=== PATIENT | male | born 1955 | race Caucasian/White ===

== ENCOUNTER 2020-11-28 17:38 | Inpatient (IN) ==
[2020-11-28] MEDS ORDERED: polyethylene glycoL 3350 17 GM POWD.PACK PO PRN (18:23)
[2020-11-28] MEDS ORDERED: Ipratropium/Albuterol Neb 3 ML IH PRN (22:17)
[2020-11-28] MEDS: *HR* OxyCODONE/APAP 10/325 TABLET PO PRN (22:37)
[2020-11-28] MEDS: Budesonide/Formoterol 80/4.5 1 PUFF INH IH SCH (23:18)
[2020-11-29 07:47] LABS: Basophils % 0.2 %; Eosinophils # 0.1 K/mcL (0.0-0.6); Eosinophils % 0.4 %; Hematocrit 30.2 % (37.5-50.1); Hemoglobin 10.4 g/dL (12.9-16.9); Immature Granulocytes % 1.4 % (0-4); Lymphocytes # 1.6 K/mcL (0.6-4.6); Lymphocytes % 7.8 %; Mean Corpuscular HGB Conc 34.4 g/dL (31.6-35.5); Mean Corpuscular Hemoglobin 33.2 pg (28.0-33.3); Mean Corpuscular Volume 96.5 fL (83.0-100.0); Mean Platelet Volume 9.7 fL (9.4-12.4); Monocytes # 1.7 K/mcL (0.0-1.3); Monocytes % 8.3 %; Neutrophils # 16.8 K/mcL (1.6-8.9); Platelet Count 219 K/mcL (140-400); Red Blood Count 3.13 M/mcL (4.19-5.50); Red Cell Distribution Width 12.2 % (11.5-14.5); Segmented Neutrophils % 81.9 %; White Blood Count 20.5 K/mcL (4.3-11.1)
[2020-11-29] MEDS: Metoprolol XL (24 HR) Succ 50 MG TAB.ER.24H PO SCH (08:09)
[2020-11-29] MEDS: Aspirin Enteric Coated 81 MG Tablet PO SCH (08:09)
[2020-11-29] MEDS: Valsartan 160 MG TABLET PO SCH (08:09)
[2020-11-29] MEDS: hydroCHLOROthiazide 25 MG TABLET PO SCH (08:10)
[2020-11-29] MEDS: Nicotine 14 MG PATCH.TD24 TD SCH (08:11)
[2020-11-29 08:15] LABS: BUN/Creatinine Ratio 20 (6-26); Blood Urea Nitrogen 20 mg/dL (8-23); Calcium 8.7 mg/dL (8.6-10.3); Carbon Dioxide 27 mEq/L (23-29); Chloride 95 mEq/L (98-107); Glucose 121 mg/dL (70-105); Osmolality,Calculated 280 (280-300); Potassium 3.5 mEq/L (3.5-5.1); Sodium 133 mEq/L (136-145); eGFR For African Americans > 60 (> 60); eGFR For Non-African Americans > 60 (> 60)
[2020-11-29] MEDS: *HR* OxyCODONE/APAP 10/325 TABLET PO PRN ×3 (08:27→21:20)
[2020-11-29] MEDS: Budesonide/Formoterol 80/4.5 1 PUFF INH IH SCH ×2 (10:16→20:28)
[2020-11-29] MEDS: Tiotropium 10 INH DOSE IH SCH (10:17)
[2020-11-29] MEDS ORDERED: Furosemide 20 MG TABLET PO ONE (15:20)
[2020-11-30 07:52] LABS: Basophils # 0.1 K/mcL (0.0-0.2); Basophils % 0.6 %; Eosinophils # 0.3 K/mcL (0.0-0.6); Eosinophils % 2.1 %; Hematocrit 28.1 % (37.5-50.1); Hemoglobin 9.3 g/dL (12.9-16.9); Immature Granulocytes % 1.3 % (0-4); Lymphocytes % 12.4 %; Mean Corpuscular HGB Conc 33.1 g/dL (31.6-35.5); Mean Corpuscular Volume 99.6 fL (83.0-100.0); Mean Platelet Volume 10.4 fL (9.4-12.4); Monocytes # 1.5 K/mcL (0.0-1.3); Neutrophils # 12.2 K/mcL (1.6-8.9); Platelet Count 249 K/mcL (140-400); Red Blood Count 2.82 M/mcL (4.19-5.50); Red Cell Distribution Width 12.4 % (11.5-14.5); Segmented Neutrophils % 74.6 %; White Blood Count 16.3 K/mcL (4.3-11.1)
[2020-11-30 08:01] LABS: Albumin 2.7 g/dL (3.5-5.7); Albumin/Globulin Ratio 0.7 (1.1-2.2); Bilirubin,Total 0.9 mg/dL (0.3-1.0); Calcium 8.8 mg/dL (8.6-10.3); Globulin 3.8 g/dL (2.4-3.5); Potassium 3.3 mEq/L (3.5-5.1); Total Protein 6.5 g/dL (6.4-8.9)
[2020-11-30] MEDS: Budesonide/Formoterol 80/4.5 1 PUFF INH IH SCH ×2 (09:51→20:44)
[2020-11-30] MEDS: Tiotropium 10 INH DOSE IH SCH (09:53)
[2020-11-30] MEDS: Valsartan 160 MG TABLET PO SCH (10:05)
[2020-11-30] MEDS: hydroCHLOROthiazide 25 MG TABLET PO SCH (10:05)
[2020-11-30] MEDS: Metoprolol XL (24 HR) Succ 50 MG TAB.ER.24H PO SCH (10:06)
[2020-11-30] MEDS: Aspirin Enteric Coated 81 MG Tablet PO SCH (10:16)
[2020-11-30] MEDS: Nicotine 14 MG PATCH.TD24 TD SCH (10:17)
[2020-11-30] MEDS: *HR* OxyCODONE/APAP 10/325 TABLET PO PRN ×2 (10:39→17:14)
[2020-11-30] MEDS ORDERED: predniSONE 20 MG TABLET PO ONE (10:51)
[2020-11-30] MEDS ORDERED: Colchicine 0.6 MG TABLET PO ONE (12:15)
[2020-11-30] MEDS: Colchicine 0.6 MG TABLET PO SCH (21:10)
[2020-11-30] MEDS: Acetaminophen 325 MG TABLET PO PRN (21:10)
[2020-12-01 07:56] LABS: Basophils # 0.1 K/mcL (0.0-0.2); Basophils % 0.3 %; Eosinophils % 0.1 %; Hematocrit 28.6 % (37.5-50.1); Hemoglobin 9.4 g/dL (12.9-16.9); Immature Granulocytes % 1.4 % (0-4); Lymphocytes # 1.8 K/mcL (0.6-4.6); Lymphocytes % 10.8 %; Mean Corpuscular HGB Conc 32.9 g/dL (31.6-35.5); Mean Corpuscular Hemoglobin 32.3 pg (28.0-33.3); Mean Corpuscular Volume 98.3 fL (83.0-100.0); Mean Platelet Volume 10.5 fL (9.4-12.4); Monocytes # 1.2 K/mcL (0.0-1.3); Monocytes % 7.3 %; Neutrophils # 13.5 K/mcL (1.6-8.9); Platelet Count 321 K/mcL (140-400); Red Blood Count 2.91 M/mcL (4.19-5.50); Segmented Neutrophils % 80.1 %; White Blood Count 16.8 K/mcL (4.3-11.1)
[2020-12-01 08:15] LABS: Alanine Aminotransferase 42 Units/L (7-52); Albumin 2.8 g/dL (3.5-5.7); Albumin/Globulin Ratio 0.7 (1.1-2.2); Alkaline Phosphatase 111 Units/L (34-104); Aspartate Amino Transferase 53 Units/L (13-39); BUN/Creatinine Ratio 34 (6-26); Bilirubin,Total 0.6 mg/dL (0.3-1.0); Blood Urea Nitrogen 47 mg/dL (8-23); Calcium 8.8 mg/dL (8.6-10.3); Carbon Dioxide 28 mEq/L (23-29); Chloride 97 mEq/L (98-107); Globulin 3.9 g/dL (2.4-3.5); Glucose 111 mg/dL (70-105); Magnesium 2.2 mg/dL (1.6-2.6); Osmolality,Calculated 293 (280-300); Potassium 3.6 mEq/L (3.5-5.1); Sodium 135 mEq/L (136-145); Total Protein 6.7 g/dL (6.4-8.9); eGFR For African Americans > 60 (> 60); eGFR For Non-African Americans 52 (> 60)
[2020-12-01] MEDS: Nicotine 14 MG PATCH.TD24 TD SCH (10:10)
[2020-12-01] MEDS: Colchicine 0.6 MG TABLET PO SCH ×2 (10:10→20:10)
[2020-12-01] MEDS: *HR* OxyCODONE/APAP 10/325 TABLET PO PRN ×3 (10:10→22:32)
[2020-12-01] MEDS: Metoprolol XL (24 HR) Succ 50 MG TAB.ER.24H PO SCH (10:11)
[2020-12-01] MEDS: Aspirin Enteric Coated 81 MG Tablet PO SCH (10:11)
[2020-12-01] MEDS: predniSONE 20 MG TABLET PO SCH (10:11)
[2020-12-01] MEDS: hydroCHLOROthiazide 25 MG TABLET PO SCH (10:11)
[2020-12-01] MEDS: Valsartan 160 MG TABLET PO SCH (10:11)
[2020-12-01] MEDS: Tiotropium 10 INH DOSE IH SCH (10:19)
[2020-12-01] MEDS: Budesonide/Formoterol 80/4.5 1 PUFF INH IH SCH ×2 (10:20→22:22)
[2020-12-01] MEDS ORDERED: hydrALAZINE 25 MG TABLET PO PRN (11:03)
[2020-12-02] MEDS: Nicotine 14 MG PATCH.TD24 TD SCH (08:26)
[2020-12-02] MEDS: predniSONE 20 MG TABLET PO SCH (08:26)
[2020-12-02] MEDS: Metoprolol XL (24 HR) Succ 50 MG TAB.ER.24H PO SCH (08:27)
[2020-12-02] MEDS: Aspirin Enteric Coated 81 MG Tablet PO SCH (08:27)
[2020-12-02] MEDS: Colchicine 0.6 MG TABLET PO SCH ×2 (08:28→20:55)
[2020-12-02] MEDS: *HR* OxyCODONE/APAP 10/325 TABLET PO PRN ×3 (09:25→21:54)
[2020-12-02] MEDS: Budesonide/Formoterol 80/4.5 1 PUFF INH IH SCH ×2 (09:58→22:37)
[2020-12-02] MEDS: Tiotropium 10 INH DOSE IH SCH (09:59)
[2020-12-02] MEDS: Acetaminophen 325 MG TABLET PO PRN (13:50)
[2020-12-03] MEDS: *HR* OxyCODONE/APAP 10/325 TABLET PO PRN ×3 (05:09→18:44)
[2020-12-03 06:44] LABS: Basophils # 0.1 K/mcL (0.0-0.2); Basophils % 0.6 %; Eosinophils # 0.1 K/mcL (0.0-0.6); Eosinophils % 0.6 %; Hematocrit 29.6 % (37.5-50.1); Hemoglobin 9.6 g/dL (12.9-16.9); Lymphocytes # 3.2 K/mcL (0.6-4.6); Lymphocytes % 24.2 %; Mean Corpuscular HGB Conc 32.4 g/dL (31.6-35.5); Mean Corpuscular Hemoglobin 32.3 pg (28.0-33.3); Mean Corpuscular Volume 99.7 fL (83.0-100.0); Monocytes # 1.1 K/mcL (0.0-1.3); Neutrophils # 8.8 K/mcL (1.6-8.9); Platelet Count 393 K/mcL (140-400); Red Blood Count 2.97 M/mcL (4.19-5.50); Segmented Neutrophils % 65.6 %; White Blood Count 13.4 K/mcL (4.3-11.1)
[2020-12-03 07:16] LABS: BUN/Creatinine Ratio 33 (6-26); Blood Urea Nitrogen 47 mg/dL (8-23); Calcium 8.5 mg/dL (8.6-10.3); Carbon Dioxide 28 mEq/L (23-29); Chloride 99 mEq/L (98-107); Glucose 117 mg/dL (70-105); Osmolality,Calculated 297 (280-300); Potassium 3.2 mEq/L (3.5-5.1); Sodium 137 mEq/L (136-145); eGFR For African Americans > 60 (> 60); eGFR For Non-African Americans 50 (> 60)
[2020-12-03] MEDS: Colchicine 0.6 MG TABLET PO SCH ×2 (08:43→20:40)
[2020-12-03] MEDS: Metoprolol XL (24 HR) Succ 50 MG TAB.ER.24H PO SCH (08:43)
[2020-12-03] MEDS: Aspirin Enteric Coated 81 MG Tablet PO SCH (08:43)
[2020-12-03] MEDS: predniSONE 20 MG TABLET PO SCH (08:43)
[2020-12-03] MEDS: Nicotine 14 MG PATCH.TD24 TD SCH (08:44)
[2020-12-03] MEDS: Budesonide/Formoterol 80/4.5 1 PUFF INH IH SCH ×2 (10:23→20:25)
[2020-12-03] MEDS: Tiotropium 10 INH DOSE IH SCH (10:23)
[2020-12-04] MEDS: *HR* OxyCODONE/APAP 10/325 TABLET PO PRN ×4 (01:02→21:28)
[2020-12-04] MEDS: Metoprolol XL (24 HR) Succ 50 MG TAB.ER.24H PO SCH (08:50)
[2020-12-04] MEDS: Valsartan 160 MG TABLET PO SCH (08:50)
[2020-12-04] MEDS: Colchicine 0.6 MG TABLET PO SCH ×2 (08:50→19:31)
[2020-12-04] MEDS: Aspirin Enteric Coated 81 MG Tablet PO SCH (08:50)
[2020-12-04] MEDS: predniSONE 20 MG TABLET PO SCH (08:51)
[2020-12-04] MEDS: hydroCHLOROthiazide 25 MG TABLET PO SCH (08:51)
[2020-12-04] MEDS: Nicotine 14 MG PATCH.TD24 TD SCH (08:51)
[2020-12-04] MEDS: Tiotropium 10 INH DOSE IH SCH (10:15)
[2020-12-04] MEDS: Budesonide/Formoterol 80/4.5 1 PUFF INH IH SCH ×2 (10:16→20:31)
[2020-12-04 20:23] VITALS: TEMP 97.8
[2020-12-05] MEDS: *HR* OxyCODONE/APAP 10/325 TABLET PO PRN ×2 (06:21→15:31)
[2020-12-05 06:45] VITALS: BP 156/89; PULSE 54
[2020-12-05 08:47] LABS: Basophils # 0.1 K/mcL (0.0-0.2); Basophils % 0.6 %; Eosinophils # 0.2 K/mcL (0.0-0.6); Eosinophils % 1.4 %; Hematocrit 31.8 % (37.5-50.1); Hemoglobin 10.2 g/dL (12.9-16.9); Immature Granulocytes % 1.5 % (0-4); Lymphocytes # 3.6 K/mcL (0.6-4.6); Lymphocytes % 28.3 %; Mean Corpuscular HGB Conc 32.1 g/dL (31.6-35.5); Mean Corpuscular Hemoglobin 31.8 pg (28.0-33.3); Mean Corpuscular Volume 99.1 fL (83.0-100.0); Mean Platelet Volume 9.8 fL (9.4-12.4); Monocytes # 0.9 K/mcL (0.0-1.3); Monocytes % 7.4 %; Platelet Count 381 K/mcL (140-400); Red Blood Count 3.21 M/mcL (4.19-5.50); Red Cell Distribution Width 12.2 % (11.5-14.5); Segmented Neutrophils % 60.8 %; White Blood Count 12.6 K/mcL (4.3-11.1)
[2020-12-05 08:49] LABS: Neutrophils # 7.7 K/mcL (1.6-8.9)
[2020-12-05 09:13] LABS: BUN/Creatinine Ratio 33 (6-26); Blood Urea Nitrogen 39 mg/dL (8-23); Calcium 8.8 mg/dL (8.6-10.3); Carbon Dioxide 26 mEq/L (23-29); Chloride 101 mEq/L (98-107); Glucose 78 mg/dL (70-105); Osmolality,Calculated 292 (280-300); Potassium 3.6 mEq/L (3.5-5.1); Sodium 137 mEq/L (136-145); eGFR For African Americans > 60 (> 60); eGFR For Non-African Americans > 60 (> 60)
[2020-12-05] MEDS: Aspirin Enteric Coated 81 MG Tablet PO SCH (09:40)
[2020-12-05] MEDS: Colchicine 0.6 MG TABLET PO SCH (09:40)
[2020-12-05] MEDS: predniSONE 20 MG TABLET PO SCH (09:41)
[2020-12-05] MEDS: Valsartan 160 MG TABLET PO SCH (09:41)
[2020-12-05] MEDS: Metoprolol XL (24 HR) Succ 50 MG TAB.ER.24H PO SCH (09:41)
[2020-12-05] MEDS: hydroCHLOROthiazide 25 MG TABLET PO SCH (09:42)
[2020-12-05] MEDS: Nicotine 14 MG PATCH.TD24 TD SCH (09:42)
[2020-12-05] MEDS: Budesonide/Formoterol 80/4.5 1 PUFF INH IH SCH (10:44)
[2020-12-05] MEDS: Tiotropium 10 INH DOSE IH SCH (10:45)
[2020-12-05 12:01] VITALS: RESP 16; O2SAT 97
== END 2020-12-05 18:44 | disposition home health service (06) | DRG 945 ==
LOC: INPPIK 22:09
PROVIDERS: ADMIT Internal Medicine; ATTEND Internal Medicine

== ENCOUNTER 2021-01-02 17:07 | Inpatient (IN) ==
[2021-01-02] MEDS ORDERED: Nicotine 2 MG GUM BC PRN (20:50)
[2021-01-02] MEDS ORDERED: Ipratropium/Albuterol Neb 3 ML IH PRN (20:50)
[2021-01-02] MEDS: *HR* OxyCODONE/APAP 10/325 TABLET PO PRN (21:36)
[2021-01-03] MEDS: *HR* OxyCODONE/APAP 10/325 TABLET PO PRN ×3 (04:55→17:21)
[2021-01-03 08:06] LABS: Basophils # 0.1 K/mcL (0.0-0.2); Basophils % 0.5 %; Eosinophils # 0.2 K/mcL (0.0-0.6); Eosinophils % 1.4 %; Hematocrit 25.1 % (37.5-50.1); Hemoglobin 8.2 g/dL (12.9-16.9); Immature Granulocytes % 1.9 % (0-4); Lymphocytes # 1.5 K/mcL (0.6-4.6); Lymphocytes % 13.6 %; Mean Corpuscular HGB Conc 32.7 g/dL (31.6-35.5); Mean Corpuscular Hemoglobin 30.8 pg (28.0-33.3); Mean Corpuscular Volume 94.4 fL (83.0-100.0); Mean Platelet Volume 8.9 fL (9.4-12.4); Monocytes # 1.1 K/mcL (0.0-1.3); Monocytes % 9.6 %; Platelet Count 226 K/mcL (140-400); Red Blood Count 2.66 M/mcL (4.19-5.50); Red Cell Distribution Width 13.9 % (11.5-14.5)
[2021-01-03 09:29] LABS: BUN/Creatinine Ratio 21 (6-26); Blood Urea Nitrogen 23 mg/dL (8-23); Calcium 8.6 mg/dL (8.6-10.3); Carbon Dioxide 27 mEq/L (23-29); Chloride 90 mEq/L (98-107); Glucose 111 mg/dL (70-105); Osmolality,Calculated 266 (280-300); Potassium 3.7 mEq/L (3.5-5.1); Sodium 126 mEq/L (136-145); eGFR For African Americans > 60 (> 60); eGFR For Non-African Americans > 60 (> 60)
[2021-01-03] MEDS: Budesonide/Formoterol 80/4.5 1 PUFF INH IH SCH ×2 (09:49→21:18)
[2021-01-03] MEDS: Tiotropium 10 INH DOSE IH SCH (09:49)
[2021-01-03] MEDS: Valsartan 160 MG TABLET PO SCH (11:00)
[2021-01-03] MEDS: Aspirin Enteric Coated 81 MG Tablet PO SCH (11:00)
[2021-01-03] MEDS: Nicotine 14 MG PATCH.TD24 TD SCH (11:00)
[2021-01-03] MEDS: Metoprolol XL (24 HR) Succ 50 MG TAB.ER.24H PO SCH (11:01)
[2021-01-03] MEDS: hydroCHLOROthiazide 25 MG TABLET PO SCH (11:01)
[2021-01-03] MEDS: Furosemide 40 MG TABLET PO SCH (11:01)
[2021-01-04] MEDS: *HR* OxyCODONE/APAP 10/325 TABLET PO PRN ×3 (03:46→19:48)
[2021-01-04] MEDS: *HR* Enoxaparin 40 MG/0.4 ML SYRINGE SQ SCH (05:37)
[2021-01-04] MEDS: Budesonide/Formoterol 80/4.5 1 PUFF INH IH SCH ×2 (09:00→21:47)
[2021-01-04] MEDS: Tiotropium 10 INH DOSE IH SCH (09:00)
[2021-01-04] MEDS: Aspirin Enteric Coated 81 MG Tablet PO SCH (10:41)
[2021-01-04] MEDS: Furosemide 40 MG TABLET PO SCH (10:41)
[2021-01-04] MEDS: Valsartan 160 MG TABLET PO SCH (10:41)
[2021-01-04] MEDS: hydroCHLOROthiazide 25 MG TABLET PO SCH (10:41)
[2021-01-04] MEDS: Metoprolol XL (24 HR) Succ 50 MG TAB.ER.24H PO SCH (10:42)
[2021-01-04] MEDS: Nicotine 14 MG PATCH.TD24 TD SCH (10:42)
[2021-01-05] MEDS: *HR* OxyCODONE/APAP 10/325 TABLET PO PRN ×3 (04:50→20:54)
[2021-01-05] MEDS: *HR* Enoxaparin 40 MG/0.4 ML SYRINGE SQ SCH (04:50)
[2021-01-05] MEDS: Aspirin Enteric Coated 81 MG Tablet PO SCH (07:40)
[2021-01-05] MEDS: Furosemide 40 MG TABLET PO SCH (07:40)
[2021-01-05] MEDS: Metoprolol XL (24 HR) Succ 50 MG TAB.ER.24H PO SCH (07:40)
[2021-01-05] MEDS: hydroCHLOROthiazide 25 MG TABLET PO SCH (07:41)
[2021-01-05] MEDS: Valsartan 160 MG TABLET PO SCH (07:41)
[2021-01-05] MEDS: Nicotine 14 MG PATCH.TD24 TD SCH (07:41)
[2021-01-05 08:33] LABS: Basophils # 0.1 K/mcL (0.0-0.2); Basophils % 0.6 %; Eosinophils # 0.3 K/mcL (0.0-0.6); Eosinophils % 2.7 %; Hematocrit 22.8 % (37.5-50.1); Hemoglobin 7.6 g/dL (12.9-16.9); Immature Granulocytes % 1.4 % (0-4); Lymphocytes # 1.8 K/mcL (0.6-4.6); Lymphocytes % 17.5 %; Mean Corpuscular HGB Conc 33.3 g/dL (31.6-35.5); Mean Corpuscular Hemoglobin 30.8 pg (28.0-33.3); Mean Corpuscular Volume 92.3 fL (83.0-100.0); Mean Platelet Volume 9.1 fL (9.4-12.4); Monocytes % 10.2 %; Neutrophils # 6.9 K/mcL (1.6-8.9); Platelet Count 242 K/mcL (140-400); Red Blood Count 2.47 M/mcL (4.19-5.50); Segmented Neutrophils % 67.6 %; White Blood Count 10.1 K/mcL (4.3-11.1)
[2021-01-05 08:45] LABS: BUN/Creatinine Ratio 24 (6-26); Blood Urea Nitrogen 20 mg/dL (8-23); Calcium 8.6 mg/dL (8.6-10.3); Carbon Dioxide 29 mEq/L (23-29); Chloride 86 mEq/L (98-107); Glucose 105 mg/dL (70-105); Osmolality,Calculated 259 (280-300); Potassium 3.5 mEq/L (3.5-5.1); Sodium 123 mEq/L (136-145); eGFR For African Americans > 60 (> 60); eGFR For Non-African Americans > 60 (> 60)
[2021-01-05] MEDS: Budesonide/Formoterol 80/4.5 1 PUFF INH IH SCH ×2 (09:00→22:28)
[2021-01-05] MEDS: Tiotropium 10 INH DOSE IH SCH (09:00)
[2021-01-05] MEDS: Ondansetron ODT 4 MG TAB.RAPDIS SL PRN (12:24)
[2021-01-06] MEDS: *HR* Enoxaparin 40 MG/0.4 ML SYRINGE SQ SCH (05:18)
[2021-01-06] MEDS: *HR* OxyCODONE/APAP 10/325 TABLET PO PRN ×3 (05:19→18:05)
[2021-01-06] MEDS: Metoprolol XL (24 HR) Succ 50 MG TAB.ER.24H PO SCH (09:35)
[2021-01-06] MEDS: Aspirin Enteric Coated 81 MG Tablet PO SCH (09:35)
[2021-01-06] MEDS: hydroCHLOROthiazide 25 MG TABLET PO SCH (09:35)
[2021-01-06] MEDS: Nicotine 14 MG PATCH.TD24 TD SCH (09:36)
[2021-01-06] MEDS: Valsartan 160 MG TABLET PO SCH (09:36)
[2021-01-06] MEDS: Furosemide 40 MG TABLET PO SCH (09:36)
[2021-01-06] MEDS: Budesonide/Formoterol 80/4.5 1 PUFF INH IH SCH ×2 (09:54→22:33)
[2021-01-06] MEDS: Tiotropium 10 INH DOSE IH SCH (09:54)
[2021-01-06] MEDS: Ondansetron ODT 4 MG TAB.RAPDIS SL PRN (14:52)
[2021-01-06] MEDS: Sennosides/Docusate Sodium TABLET PO SCH (21:36)
[2021-01-07] MEDS: *HR* OxyCODONE/APAP 10/325 TABLET PO PRN ×3 (00:33→17:10)
[2021-01-07] MEDS: *HR* Enoxaparin 40 MG/0.4 ML SYRINGE SQ SCH (06:15)
[2021-01-07 06:36] VITALS: BP 100/65; PULSE 57; RESP 18; TEMP 98.1; O2SAT 93
[2021-01-07] MEDS: Valsartan 160 MG TABLET PO SCH (09:00)
[2021-01-07] MEDS: Sennosides/Docusate Sodium TABLET PO SCH (09:00)
[2021-01-07] MEDS: hydroCHLOROthiazide 25 MG TABLET PO SCH (09:00)
[2021-01-07] MEDS: Nicotine 14 MG PATCH.TD24 TD SCH (09:01)
[2021-01-07] MEDS: Furosemide 40 MG TABLET PO SCH (09:01)
[2021-01-07] MEDS: Aspirin Enteric Coated 81 MG Tablet PO SCH (09:01)
[2021-01-07] MEDS: Metoprolol XL (24 HR) Succ 50 MG TAB.ER.24H PO SCH (09:01)
[2021-01-07] MEDS: Tiotropium 10 INH DOSE IH SCH (10:44)
[2021-01-07] MEDS: Budesonide/Formoterol 80/4.5 1 PUFF INH IH SCH (10:44)
[2021-01-07] MEDS: Ondansetron ODT 4 MG TAB.RAPDIS SL PRN (17:10)
== END 2021-01-07 19:35 | disposition short-term general hospital (02) | DRG 593 ==
LOC: INPPIK 21:06
PROVIDERS: ADMIT Internal Medicine; ATTEND Internal Medicine

== ENCOUNTER 2021-01-14 16:25 | Inpatient (IN) ==
[2021-01-14] MEDS ORDERED: Nicotine 2 MG GUM BC PRN (17:26)
[2021-01-14] MEDS ORDERED: Ipratropium/Albuterol Neb 3 ML IH PRN (17:26)
[2021-01-14] MEDS: Budesonide/Formoterol 80/4.5 1 PUFF INH IH SCH (21:58)
[2021-01-14] MEDS: *HR* OxyCODONE/APAP 10/325 TABLET PO PRN (22:00)
[2021-01-15] MEDS: *HR* OxyCODONE/APAP 10/325 TABLET PO PRN ×3 (04:06→23:46)
[2021-01-15 06:21] LABS: Basophils # 0.1 K/mcL (0.0-0.2); Eosinophils # 0.3 K/mcL (0.0-0.6); Hematocrit 23.6 % (37.5-50.1); Hemoglobin 7.5 g/dL (12.9-16.9); Immature Granulocytes % 3.7 % (0-4); Lymphocytes % 23.4 %; Mean Corpuscular HGB Conc 31.8 g/dL (31.6-35.5); Mean Corpuscular Hemoglobin 30.7 pg (28.0-33.3); Mean Corpuscular Volume 96.7 fL (83.0-100.0); Monocytes # 0.9 K/mcL (0.0-1.3); Monocytes % 10.8 %; Platelet Count 265 K/mcL (140-400); Red Blood Count 2.44 M/mcL (4.19-5.50); Red Cell Distribution Width 14.9 % (11.5-14.5); Segmented Neutrophils % 58.1 %; White Blood Count 8.7 K/mcL (4.3-11.1)
[2021-01-15] MEDS: Valsartan 160 MG TABLET PO SCH (09:14)
[2021-01-15] MEDS: Aspirin Enteric Coated 81 MG Tablet PO SCH (09:15)
[2021-01-15] MEDS: Furosemide 40 MG TABLET PO SCH (09:15)
[2021-01-15] MEDS: hydroCHLOROthiazide 25 MG TABLET PO SCH (09:16)
[2021-01-15] MEDS: Nicotine 14 MG PATCH.TD24 TD SCH (09:16)
[2021-01-15] MEDS: Metoprolol XL (24 HR) Succ 50 MG TAB.ER.24H PO SCH (09:17)
[2021-01-15] MEDS: Budesonide/Formoterol 80/4.5 1 PUFF INH IH SCH ×2 (10:16→21:49)
[2021-01-15] MEDS: Tiotropium 10 INH DOSE IH SCH (10:54)
[2021-01-15] MEDS: Ondansetron ODT 4 MG TAB.RAPDIS SL PRN (12:41)
[2021-01-15] MEDS: Sennosides/Docusate Sodium TABLET PO SCH (20:33)
[2021-01-16] MEDS: Sennosides/Docusate Sodium TABLET PO SCH ×2 (08:39→19:21)
[2021-01-16] MEDS: *HR* OxyCODONE/APAP 10/325 TABLET PO PRN ×2 (08:39→15:46)
[2021-01-16] MEDS: hydroCHLOROthiazide 25 MG TABLET PO SCH (08:39)
[2021-01-16] MEDS: Valsartan 160 MG TABLET PO SCH (08:40)
[2021-01-16] MEDS: Furosemide 40 MG TABLET PO SCH (08:40)
[2021-01-16] MEDS: Aspirin Enteric Coated 81 MG Tablet PO SCH (08:40)
[2021-01-16] MEDS: Metoprolol XL (24 HR) Succ 50 MG TAB.ER.24H PO SCH (08:40)
[2021-01-16] MEDS: Nicotine 14 MG PATCH.TD24 TD SCH (08:40)
[2021-01-16] MEDS: Budesonide/Formoterol 80/4.5 1 PUFF INH IH SCH ×2 (09:37→21:41)
[2021-01-16] MEDS: Tiotropium 10 INH DOSE IH SCH (09:37)
[2021-01-17] MEDS: *HR* OxyCODONE/APAP 10/325 TABLET PO PRN ×3 (05:45→20:35)
[2021-01-17] MEDS: Metoprolol XL (24 HR) Succ 50 MG TAB.ER.24H PO SCH (09:03)
[2021-01-17] MEDS: Valsartan 160 MG TABLET PO SCH (09:03)
[2021-01-17] MEDS: Furosemide 40 MG TABLET PO SCH (09:04)
[2021-01-17] MEDS: hydroCHLOROthiazide 25 MG TABLET PO SCH (09:04)
[2021-01-17] MEDS: Sennosides/Docusate Sodium TABLET PO SCH ×2 (09:04→20:35)
[2021-01-17] MEDS: Aspirin Enteric Coated 81 MG Tablet PO SCH (09:04)
[2021-01-17] MEDS: Nicotine 14 MG PATCH.TD24 TD SCH (09:05)
[2021-01-17] MEDS: Budesonide/Formoterol 80/4.5 1 PUFF INH IH SCH ×2 (10:10→22:11)
[2021-01-17] MEDS: Tiotropium 10 INH DOSE IH SCH (10:10)
[2021-01-18] MEDS: *HR* OxyCODONE/APAP 10/325 TABLET PO PRN ×3 (04:20→18:52)
[2021-01-18] MEDS: Aspirin Enteric Coated 81 MG Tablet PO SCH (08:30)
[2021-01-18] MEDS: hydroCHLOROthiazide 25 MG TABLET PO SCH (08:30)
[2021-01-18] MEDS: Sennosides/Docusate Sodium TABLET PO SCH ×2 (08:30→20:12)
[2021-01-18] MEDS: Valsartan 160 MG TABLET PO SCH (08:31)
[2021-01-18] MEDS: Nicotine 14 MG PATCH.TD24 TD SCH (08:31)
[2021-01-18] MEDS: Furosemide 40 MG TABLET PO SCH (08:31)
[2021-01-18] MEDS: Metoprolol XL (24 HR) Succ 50 MG TAB.ER.24H PO SCH (08:32)
[2021-01-18] MEDS: Tiotropium 10 INH DOSE IH SCH (09:31)
[2021-01-18] MEDS: Budesonide/Formoterol 80/4.5 1 PUFF INH IH SCH ×2 (09:31→22:00)
[2021-01-18] MEDS: Lactobacillus 1 EACH CAP.SPRINK PO SCH (10:05)
[2021-01-19] MEDS: Nicotine 14 MG PATCH.TD24 TD SCH (03:18)
[2021-01-19] MEDS: *HR* OxyCODONE/APAP 10/325 TABLET PO PRN ×3 (05:18→23:03)
[2021-01-19] MEDS: *HR* Enoxaparin 40 MG/0.4 ML SYRINGE SQ SCH (06:37)
[2021-01-19 07:34] LABS: Basophils # 0.1 K/mcL (0.0-0.2); Basophils % 0.6 %; Eosinophils # 0.3 K/mcL (0.0-0.6); Eosinophils % 2.7 %; Hematocrit 24.5 % (37.5-50.1); Hemoglobin 7.8 g/dL (12.9-16.9); Immature Granulocytes % 1.8 % (0-4); Lymphocytes # 1.6 K/mcL (0.6-4.6); Lymphocytes % 14.3 %; Mean Corpuscular HGB Conc 31.8 g/dL (31.6-35.5); Mean Corpuscular Hemoglobin 30.4 pg (28.0-33.3); Mean Corpuscular Volume 95.3 fL (83.0-100.0); Mean Platelet Volume 9.5 fL (9.4-12.4); Monocytes # 1.2 K/mcL (0.0-1.3); Monocytes % 11.4 %; Neutrophils # 7.5 K/mcL (1.6-8.9); Platelet Count 241 K/mcL (140-400); Red Blood Count 2.57 M/mcL (4.19-5.50); Red Cell Distribution Width 15.4 % (11.5-14.5); Segmented Neutrophils % 69.2 %; White Blood Count 10.9 K/mcL (4.3-11.1)
[2021-01-19 07:43] LABS: BUN/Creatinine Ratio 22 (6-26); Blood Urea Nitrogen 20 mg/dL (8-23); Calcium 8.1 mg/dL (8.6-10.3); Carbon Dioxide 28 mEq/L (23-29); Chloride 92 mEq/L (98-107); Glucose 109 mg/dL (70-105); Osmolality,Calculated 269 (280-300); Potassium 3.2 mEq/L (3.5-5.1); Sodium 128 mEq/L (136-145); eGFR For African Americans > 60 (> 60); eGFR For Non-African Americans > 60 (> 60)
[2021-01-19] MEDS: Lactobacillus 1 EACH CAP.SPRINK PO SCH (08:44)
[2021-01-19] MEDS: Valsartan 160 MG TABLET PO SCH (08:45)
[2021-01-19] MEDS: Sennosides/Docusate Sodium TABLET PO SCH ×2 (08:45→21:15)
[2021-01-19] MEDS: Furosemide 40 MG TABLET PO SCH (08:45)
[2021-01-19] MEDS: Aspirin Enteric Coated 81 MG Tablet PO SCH (08:45)
[2021-01-19] MEDS: hydroCHLOROthiazide 25 MG TABLET PO SCH (08:46)
[2021-01-19] MEDS: Metoprolol XL (24 HR) Succ 50 MG TAB.ER.24H PO SCH (08:46)
[2021-01-19] MEDS: Tiotropium 10 INH DOSE IH SCH (10:43)
[2021-01-19] MEDS: Budesonide/Formoterol 80/4.5 1 PUFF INH IH SCH ×2 (10:43→21:25)
[2021-01-20] MEDS: *HR* Enoxaparin 40 MG/0.4 ML SYRINGE SQ SCH (06:58)
[2021-01-20 07:12] LABS: BUN/Creatinine Ratio 24 (6-26); Blood Urea Nitrogen 22 mg/dL (8-23); Calcium 8.3 mg/dL (8.6-10.3); Carbon Dioxide 30 mEq/L (23-29); Chloride 91 mEq/L (98-107); Glucose 96 mg/dL (70-105); Osmolality,Calculated 271 (280-300); Potassium 3.3 mEq/L (3.5-5.1); Sodium 129 mEq/L (136-145); eGFR For African Americans > 60 (> 60); eGFR For Non-African Americans > 60 (> 60)
[2021-01-20] MEDS: *HR* OxyCODONE/APAP 10/325 TABLET PO PRN ×3 (09:19→18:38)
[2021-01-20] MEDS: Aspirin Enteric Coated 81 MG Tablet PO SCH (09:19)
[2021-01-20] MEDS: Lactobacillus 1 EACH CAP.SPRINK PO SCH (09:19)
[2021-01-20] MEDS: Metoprolol XL (24 HR) Succ 50 MG TAB.ER.24H PO SCH (09:20)
[2021-01-20] MEDS: Valsartan 160 MG TABLET PO SCH (09:20)
[2021-01-20] MEDS: Nicotine 14 MG PATCH.TD24 TD SCH (09:20)
[2021-01-20] MEDS: Furosemide 40 MG TABLET PO SCH (09:20)
[2021-01-20] MEDS: Sennosides/Docusate Sodium TABLET PO SCH ×2 (09:21→21:58)
[2021-01-20] MEDS: Tiotropium 10 INH DOSE IH SCH (09:24)
[2021-01-20] MEDS: Budesonide/Formoterol 80/4.5 1 PUFF INH IH SCH ×2 (09:25→21:40)
[2021-01-21] MEDS ORDERED: Naloxone 0.4 MG/ML INJ IVP PRN (03:58)
[2021-01-21] MEDS ORDERED: Ketorolac 30 MG/ML VIAL IM PRN (03:58)
[2021-01-21] MEDS ORDERED: 0.9 % Sodium Chloride 1,000 ML IVC ONE (03:59)
[2021-01-21] MEDS: *HR* Enoxaparin 40 MG/0.4 ML SYRINGE SQ SCH (06:11)
[2021-01-21 06:35] LABS: Basophils # 0.1 K/mcL (0.0-0.2); Basophils % 0.7 %; Eosinophils # 0.4 K/mcL (0.0-0.6); Eosinophils % 3.3 %; Hematocrit 24.6 % (37.5-50.1); Hemoglobin 7.9 g/dL (12.9-16.9); Lymphocytes # 1.6 K/mcL (0.6-4.6); Lymphocytes % 14.6 %; Mean Corpuscular HGB Conc 32.1 g/dL (31.6-35.5); Mean Corpuscular Hemoglobin 30.6 pg (28.0-33.3); Mean Corpuscular Volume 95.3 fL (83.0-100.0); Mean Platelet Volume 9.4 fL (9.4-12.4); Monocytes % 9.5 %; Neutrophils # 7.6 K/mcL (1.6-8.9); Platelet Count 223 K/mcL (140-400); Red Blood Count 2.58 M/mcL (4.19-5.50); Red Cell Distribution Width 15.5 % (11.5-14.5); Segmented Neutrophils % 70.9 %; White Blood Count 10.8 K/mcL (4.3-11.1)
[2021-01-21 06:52] LABS: BUN/Creatinine Ratio 22 (6-26); Blood Urea Nitrogen 19 mg/dL (8-23); Calcium 8.1 mg/dL (8.6-10.3); Carbon Dioxide 28 mEq/L (23-29); Chloride 91 mEq/L (98-107); Glucose 125 mg/dL (70-105); Osmolality,Calculated 268 (280-300); Potassium 3.6 mEq/L (3.5-5.1); Sodium 127 mEq/L (136-145); eGFR For African Americans > 60 (> 60); eGFR For Non-African Americans > 60 (> 60)
[2021-01-21] MEDS: Acetaminophen 325 MG TABLET PO PRN (06:57)
[2021-01-21] MEDS: Nicotine 14 MG PATCH.TD24 TD SCH (08:28)
[2021-01-21] MEDS: Sennosides/Docusate Sodium TABLET PO SCH ×2 (08:29→20:59)
[2021-01-21] MEDS: Furosemide 40 MG TABLET PO SCH (08:29)
[2021-01-21] MEDS: Metoprolol XL (24 HR) Succ 50 MG TAB.ER.24H PO SCH (08:29)
[2021-01-21] MEDS: Valsartan 160 MG TABLET PO SCH (08:29)
[2021-01-21] MEDS: *HR* OxyCODONE/APAP 10/325 TABLET PO PRN ×4 (08:29→23:54)
[2021-01-21] MEDS: Lactobacillus 1 EACH CAP.SPRINK PO SCH (08:29)
[2021-01-21] MEDS: Aspirin Enteric Coated 81 MG Tablet PO SCH (08:29)
[2021-01-21] MEDS: Budesonide/Formoterol 80/4.5 1 PUFF INH IH SCH ×2 (11:09→21:40)
[2021-01-21] MEDS: Tiotropium 10 INH DOSE IH SCH (11:10)
[2021-01-22] MEDS: *HR* OxyCODONE/APAP 10/325 TABLET PO PRN ×4 (04:22→18:14)
[2021-01-22] MEDS: *HR* Enoxaparin 40 MG/0.4 ML SYRINGE SQ SCH (05:50)
[2021-01-22] MEDS: Furosemide 40 MG TABLET PO SCH (09:05)
[2021-01-22] MEDS: Sennosides/Docusate Sodium TABLET PO SCH ×3 (09:05→21:41)
[2021-01-22] MEDS: Aspirin Enteric Coated 81 MG Tablet PO SCH (09:06)
[2021-01-22] MEDS: Lactobacillus 1 EACH CAP.SPRINK PO SCH (09:06)
[2021-01-22] MEDS: Nicotine 14 MG PATCH.TD24 TD SCH (09:07)
[2021-01-22] MEDS: Metoprolol XL (24 HR) Succ 50 MG TAB.ER.24H PO SCH (09:07)
[2021-01-22] MEDS: Tiotropium 10 INH DOSE IH SCH (09:26)
[2021-01-22] MEDS: Budesonide/Formoterol 80/4.5 1 PUFF INH IH SCH ×2 (09:26→22:30)
[2021-01-23] MEDS: Valsartan 160 MG TABLET PO SCH ×2 (01:36→09:35)
[2021-01-23] MEDS: *HR* OxyCODONE/APAP 10/325 TABLET PO PRN ×4 (05:56→23:08)
[2021-01-23] MEDS: *HR* Enoxaparin 40 MG/0.4 ML SYRINGE SQ SCH (05:56)
[2021-01-23] MEDS: Tiotropium 10 INH DOSE IH SCH (09:12)
[2021-01-23] MEDS: Budesonide/Formoterol 80/4.5 1 PUFF INH IH SCH ×2 (09:12→22:53)
[2021-01-23] MEDS: Aspirin Enteric Coated 81 MG Tablet PO SCH (09:34)
[2021-01-23] MEDS: Lactobacillus 1 EACH CAP.SPRINK PO SCH (09:35)
[2021-01-23] MEDS: Furosemide 40 MG TABLET PO SCH (09:35)
[2021-01-23] MEDS: Metoprolol XL (24 HR) Succ 50 MG TAB.ER.24H PO SCH (09:36)
[2021-01-23] MEDS: Nicotine 14 MG PATCH.TD24 TD SCH (09:36)
[2021-01-23] MEDS: Sennosides/Docusate Sodium TABLET PO SCH ×2 (09:36→20:45)
[2021-01-23 10:01] LABS: Basophils # 0.1 K/mcL (0.0-0.2); Basophils % 0.9 %; Eosinophils # 0.4 K/mcL (0.0-0.6); Eosinophils % 5.2 %; Hematocrit 24.6 % (37.5-50.1); Hemoglobin 7.8 g/dL (12.9-16.9); Immature Granulocytes % 1.1 % (0-4); Lymphocytes # 1.7 K/mcL (0.6-4.6); Lymphocytes % 21.8 %; Mean Corpuscular HGB Conc 31.7 g/dL (31.6-35.5); Mean Corpuscular Hemoglobin 31.1 pg (28.0-33.3); Monocytes # 0.7 K/mcL (0.0-1.3); Monocytes % 8.5 %; Platelet Count 194 K/mcL (140-400); Red Blood Count 2.51 M/mcL (4.19-5.50); Red Cell Distribution Width 15.6 % (11.5-14.5); Segmented Neutrophils % 62.5 %; White Blood Count 7.9 K/mcL (4.3-11.1)
[2021-01-23 10:25] LABS: Alanine Aminotransferase 44 Units/L (7-52); Albumin 2.7 g/dL (3.5-5.7); Albumin/Globulin Ratio 0.9 (1.1-2.2); Alkaline Phosphatase 386 Units/L (34-104); Aspartate Amino Transferase 22 Units/L (13-39); BUN/Creatinine Ratio 20 (6-26); Bilirubin,Total 0.7 mg/dL (0.3-1.0); Blood Urea Nitrogen 16 mg/dL (8-23); Calcium 8.1 mg/dL (8.6-10.3); Carbon Dioxide 27 mEq/L (23-29); Chloride 99 mEq/L (98-107); Glucose 144 mg/dL (70-105); Osmolality,Calculated 282 (280-300); Potassium 3.9 mEq/L (3.5-5.1); Sodium 134 mEq/L (136-145); Total Protein 5.7 g/dL (6.4-8.9); eGFR For African Americans > 60 (> 60); eGFR For Non-African Americans > 60 (> 60)
[2021-01-23 13:14] LABS: C-Reactive Protein 74 mg/L (Less than 10)
[2021-01-24] MEDS: *HR* Enoxaparin 40 MG/0.4 ML SYRINGE SQ SCH (06:32)
[2021-01-24] MEDS: Lactobacillus 1 EACH CAP.SPRINK PO SCH (07:32)
[2021-01-24] MEDS: Furosemide 40 MG TABLET PO SCH (07:32)
[2021-01-24] MEDS: *HR* OxyCODONE/APAP 10/325 TABLET PO PRN ×3 (07:32→19:46)
[2021-01-24] MEDS: Aspirin Enteric Coated 81 MG Tablet PO SCH (07:32)
[2021-01-24] MEDS: Metoprolol XL (24 HR) Succ 50 MG TAB.ER.24H PO SCH (07:32)
[2021-01-24] MEDS: Valsartan 160 MG TABLET PO SCH (07:32)
[2021-01-24] MEDS: Sennosides/Docusate Sodium TABLET PO SCH ×2 (07:32→19:46)
[2021-01-24] MEDS: Nicotine 14 MG PATCH.TD24 TD SCH (07:33)
[2021-01-24] MEDS: Tiotropium 10 INH DOSE IH SCH (08:36)
[2021-01-24] MEDS: Budesonide/Formoterol 80/4.5 1 PUFF INH IH SCH ×2 (08:36→22:23)
[2021-01-24] MEDS: Morphine Sulfate 2 MG/ML SYRINGE IVP PRN (10:40)
[2021-01-25] MEDS: *HR* Enoxaparin 40 MG/0.4 ML SYRINGE SQ SCH (04:07)
[2021-01-25] MEDS: *HR* OxyCODONE/APAP 10/325 TABLET PO PRN ×4 (04:07→21:20)
[2021-01-25 08:41] LABS: Basophils # 0.1 K/mcL (0.0-0.2); Basophils % 0.5 %; Eosinophils # 0.4 K/mcL (0.0-0.6); Eosinophils % 4.2 %; Hematocrit 24.8 % (37.5-50.1); Hemoglobin 7.7 g/dL (12.9-16.9); Immature Granulocytes % 0.5 % (0-4); Lymphocytes # 2.3 K/mcL (0.6-4.6); Lymphocytes % 24.7 %; Mean Corpuscular Hemoglobin 30.7 pg (28.0-33.3); Mean Corpuscular Volume 98.8 fL (83.0-100.0); Mean Platelet Volume 9.1 fL (9.4-12.4); Monocytes # 0.9 K/mcL (0.0-1.3); Monocytes % 10.2 %; Neutrophils # 5.5 K/mcL (1.6-8.9); Platelet Count 187 K/mcL (140-400); Red Blood Count 2.51 M/mcL (4.19-5.50); Red Cell Distribution Width 15.8 % (11.5-14.5); Segmented Neutrophils % 59.9 %; White Blood Count 9.2 K/mcL (4.3-11.1)
[2021-01-25 09:23] LABS: BUN/Creatinine Ratio 21 (6-26); Blood Urea Nitrogen 16 mg/dL (8-23); Calcium 8.3 mg/dL (8.6-10.3); Carbon Dioxide 27 mEq/L (23-29); Chloride 103 mEq/L (98-107); Glucose 97 mg/dL (70-105); Osmolality,Calculated 287 (280-300); Potassium 3.9 mEq/L (3.5-5.1); Sodium 138 mEq/L (136-145); eGFR For African Americans > 60 (> 60); eGFR For Non-African Americans > 60 (> 60)
[2021-01-25] MEDS: Budesonide/Formoterol 80/4.5 1 PUFF INH IH SCH ×2 (11:01→21:33)
[2021-01-25] MEDS: Tiotropium 10 INH DOSE IH SCH (11:01)
[2021-01-25] MEDS: Sennosides/Docusate Sodium TABLET PO SCH ×2 (11:43→20:40)
[2021-01-25] MEDS: Lactobacillus 1 EACH CAP.SPRINK PO SCH (11:43)
[2021-01-25] MEDS: Nicotine 14 MG PATCH.TD24 TD SCH (11:44)
[2021-01-25] MEDS: Valsartan 160 MG TABLET PO SCH (11:44)
[2021-01-25] MEDS: Furosemide 40 MG TABLET PO SCH (11:44)
[2021-01-25] MEDS: Aspirin Enteric Coated 81 MG Tablet PO SCH (11:44)
[2021-01-25] MEDS: Metoprolol XL (24 HR) Succ 50 MG TAB.ER.24H PO SCH (11:44)
[2021-01-26] MEDS: *HR* OxyCODONE/APAP 10/325 TABLET PO PRN ×4 (04:23→21:39)
[2021-01-26] MEDS: *HR* Enoxaparin 40 MG/0.4 ML SYRINGE SQ SCH (06:01)
[2021-01-26] MEDS: Nicotine 14 MG PATCH.TD24 TD SCH (10:00)
[2021-01-26] MEDS: Lactobacillus 1 EACH CAP.SPRINK PO SCH (10:01)
[2021-01-26] MEDS: Metoprolol XL (24 HR) Succ 50 MG TAB.ER.24H PO SCH (10:02)
[2021-01-26] MEDS: Aspirin Enteric Coated 81 MG Tablet PO SCH (10:02)
[2021-01-26] MEDS: Valsartan 160 MG TABLET PO SCH (10:02)
[2021-01-26] MEDS: Sennosides/Docusate Sodium TABLET PO SCH ×2 (10:02→21:58)
[2021-01-26] MEDS: Furosemide 40 MG TABLET PO SCH (10:02)
[2021-01-26] MEDS: Tiotropium 10 INH DOSE IH SCH (11:10)
[2021-01-26] MEDS: Budesonide/Formoterol 80/4.5 1 PUFF INH IH SCH ×2 (11:11→21:30)
[2021-01-27] MEDS: *HR* OxyCODONE/APAP 10/325 TABLET PO PRN ×4 (04:12→20:27)
[2021-01-27] MEDS: *HR* Enoxaparin 40 MG/0.4 ML SYRINGE SQ SCH (06:30)
[2021-01-27] MEDS: Lactobacillus 1 EACH CAP.SPRINK PO SCH (08:40)
[2021-01-27] MEDS: Aspirin Enteric Coated 81 MG Tablet PO SCH (08:43)
[2021-01-27] MEDS: Valsartan 160 MG TABLET PO SCH (08:43)
[2021-01-27] MEDS: Metoprolol XL (24 HR) Succ 50 MG TAB.ER.24H PO SCH (08:43)
[2021-01-27] MEDS: Sennosides/Docusate Sodium TABLET PO SCH ×2 (08:44→20:28)
[2021-01-27] MEDS: Nicotine 14 MG PATCH.TD24 TD SCH (08:44)
[2021-01-27] MEDS: Furosemide 40 MG TABLET PO SCH (08:45)
[2021-01-27] MEDS: Tiotropium 10 INH DOSE IH SCH (08:49)
[2021-01-27] MEDS: Budesonide/Formoterol 80/4.5 1 PUFF INH IH SCH ×2 (08:49→21:34)
[2021-01-28] MEDS: Morphine Sulfate 2 MG/ML SYRINGE IVP PRN (00:12)
[2021-01-28] MEDS: *HR* Enoxaparin 40 MG/0.4 ML SYRINGE SQ SCH (06:08)
[2021-01-28] MEDS: Aspirin Enteric Coated 81 MG Tablet PO SCH ×2 (09:02→10:02)
[2021-01-28] MEDS: Tiotropium 10 INH DOSE IH SCH (09:07)
[2021-01-28] MEDS: Budesonide/Formoterol 80/4.5 1 PUFF INH IH SCH ×2 (09:07→23:02)
[2021-01-28] MEDS: Metoprolol XL (24 HR) Succ 50 MG TAB.ER.24H PO SCH ×2 (09:10→10:02)
[2021-01-28] MEDS: Lactobacillus 1 EACH CAP.SPRINK PO SCH ×2 (09:10→10:02)
[2021-01-28] MEDS: Valsartan 160 MG TABLET PO SCH ×2 (09:10→10:02)
[2021-01-28] MEDS: Furosemide 40 MG TABLET PO SCH ×2 (09:10→10:02)
[2021-01-28] MEDS: Sennosides/Docusate Sodium TABLET PO SCH ×4 (09:10→20:53)
[2021-01-28] MEDS: Nicotine 14 MG PATCH.TD24 TD SCH (10:01)
[2021-01-28] MEDS: *HR* OxyCODONE/APAP 10/325 TABLET PO PRN ×2 (10:06→20:53)
[2021-01-28] MEDS ORDERED: *HR* OxyCODONE Immed Rel 5 MG TABLET PO PRN (14:42)
[2021-01-28] MEDS ORDERED: Albuterol 2.5 MG/3 ML NEBULIZER IH PRN (14:42)
[2021-01-28] MEDS ORDERED: Famotidine 20 MG/2 ML VIAL IVP ONE (14:42)
[2021-01-28] MEDS ORDERED: *HR* HYDROmorphone PF 0.5 MG/0.5 ML SYRINGE IVP PRN (14:42)
[2021-01-28] MEDS ORDERED: Acetaminophen IV 1,000 MG/100 ML BAG IVPB ONE (14:42)
[2021-01-28] MEDS ORDERED: Ondansetron 4 MG/2 ML VIAL IVP PRN (14:42)
[2021-01-29] MEDS: *HR* OxyCODONE/APAP 10/325 TABLET PO PRN ×4 (03:11→20:11)
[2021-01-29] MEDS: *HR* Enoxaparin 40 MG/0.4 ML SYRINGE SQ SCH (06:16)
[2021-01-29] MEDS: Nicotine 14 MG PATCH.TD24 TD SCH (08:12)
[2021-01-29] MEDS: Aspirin Enteric Coated 81 MG Tablet PO SCH (08:12)
[2021-01-29] MEDS: Furosemide 40 MG TABLET PO SCH (08:13)
[2021-01-29] MEDS: Metoprolol XL (24 HR) Succ 50 MG TAB.ER.24H PO SCH (08:13)
[2021-01-29] MEDS: Lactobacillus 1 EACH CAP.SPRINK PO SCH (08:13)
[2021-01-29] MEDS: Valsartan 160 MG TABLET PO SCH (08:13)
[2021-01-29] MEDS: Sennosides/Docusate Sodium TABLET PO SCH ×2 (08:14→20:06)
[2021-01-29] MEDS: Budesonide/Formoterol 80/4.5 1 PUFF INH IH SCH ×2 (11:16→22:39)
[2021-01-29] MEDS: Tiotropium 10 INH DOSE IH SCH (11:16)
[2021-01-30] MEDS: *HR* OxyCODONE/APAP 10/325 TABLET PO PRN ×5 (02:21→22:08)
[2021-01-30] MEDS: *HR* Enoxaparin 40 MG/0.4 ML SYRINGE SQ SCH (05:50)
[2021-01-30 07:02] LABS: Basophils # 0.1 K/mcL (0.0-0.2); Basophils % 0.7 %; Eosinophils # 0.1 K/mcL (0.0-0.6); Eosinophils % 1.1 %; Hematocrit 23.9 % (37.5-50.1); Hemoglobin 7.4 g/dL (12.9-16.9); Lymphocytes # 2.6 K/mcL (0.6-4.6); Lymphocytes % 29.8 %; Mean Corpuscular Hemoglobin 30.6 pg (28.0-33.3); Mean Corpuscular Volume 98.8 fL (83.0-100.0); Monocytes # 0.8 K/mcL (0.0-1.3); Monocytes % 9.5 %; Neutrophils # 5.1 K/mcL (1.6-8.9); Platelet Count 228 K/mcL (140-400); Red Blood Count 2.42 M/mcL (4.19-5.50); Red Cell Distribution Width 15.2 % (11.5-14.5); Segmented Neutrophils % 57.9 %; White Blood Count 8.9 K/mcL (4.3-11.1)
[2021-01-30 07:11] LABS: BUN/Creatinine Ratio 13 (6-26); Blood Urea Nitrogen 11 mg/dL (8-23); Calcium 8.2 mg/dL (8.6-10.3); Carbon Dioxide 29 mEq/L (23-29); Chloride 104 mEq/L (98-107); Glucose 108 mg/dL (70-105); Osmolality,Calculated 288 (280-300); Potassium 3.7 mEq/L (3.5-5.1); Sodium 139 mEq/L (136-145); eGFR For African Americans > 60 (> 60); eGFR For Non-African Americans > 60 (> 60)
[2021-01-30] MEDS: Valsartan 160 MG TABLET PO SCH (08:12)
[2021-01-30] MEDS: Nicotine 14 MG PATCH.TD24 TD SCH (08:13)
[2021-01-30] MEDS: Furosemide 40 MG TABLET PO SCH (08:13)
[2021-01-30] MEDS: Metoprolol XL (24 HR) Succ 50 MG TAB.ER.24H PO SCH (08:13)
[2021-01-30] MEDS: Lactobacillus 1 EACH CAP.SPRINK PO SCH (08:13)
[2021-01-30] MEDS: Aspirin Enteric Coated 81 MG Tablet PO SCH (08:13)
[2021-01-30] MEDS: Sennosides/Docusate Sodium TABLET PO SCH ×2 (09:38→21:00)
[2021-01-30] MEDS: Budesonide/Formoterol 80/4.5 1 PUFF INH IH SCH ×2 (10:04→21:08)
[2021-01-30] MEDS: Tiotropium 10 INH DOSE IH SCH (10:04)
[2021-01-31] MEDS: *HR* Enoxaparin 40 MG/0.4 ML SYRINGE SQ SCH (05:29)
[2021-01-31] MEDS: *HR* OxyCODONE/APAP 10/325 TABLET PO PRN ×4 (05:29→21:25)
[2021-01-31] MEDS: Lactobacillus 1 EACH CAP.SPRINK PO SCH (09:25)
[2021-01-31] MEDS: Metoprolol XL (24 HR) Succ 50 MG TAB.ER.24H PO SCH (09:25)
[2021-01-31] MEDS: Valsartan 160 MG TABLET PO SCH (09:26)
[2021-01-31] MEDS: Aspirin Enteric Coated 81 MG Tablet PO SCH (09:26)
[2021-01-31] MEDS: Furosemide 40 MG TABLET PO SCH (09:26)
[2021-01-31] MEDS: Sennosides/Docusate Sodium TABLET PO SCH ×2 (09:26→20:00)
[2021-01-31] MEDS: Nicotine 14 MG PATCH.TD24 TD SCH (09:26)
[2021-01-31] MEDS: Tiotropium 10 INH DOSE IH SCH (09:28)
[2021-01-31] MEDS: Budesonide/Formoterol 80/4.5 1 PUFF INH IH SCH ×2 (09:28→21:57)
[2021-02-01] MEDS: *HR* OxyCODONE/APAP 10/325 TABLET PO PRN ×5 (04:32→21:56)
[2021-02-01] MEDS: *HR* Enoxaparin 40 MG/0.4 ML SYRINGE SQ SCH (06:45)
[2021-02-01] MEDS: Lactobacillus 1 EACH CAP.SPRINK PO SCH (08:01)
[2021-02-01] MEDS: Metoprolol XL (24 HR) Succ 50 MG TAB.ER.24H PO SCH (08:02)
[2021-02-01] MEDS: Sennosides/Docusate Sodium TABLET PO SCH ×2 (08:02→20:16)
[2021-02-01] MEDS: Nicotine 14 MG PATCH.TD24 TD SCH (08:02)
[2021-02-01] MEDS: Valsartan 160 MG TABLET PO SCH (08:02)
[2021-02-01] MEDS: Furosemide 40 MG TABLET PO SCH (08:02)
[2021-02-01] MEDS: Aspirin Enteric Coated 81 MG Tablet PO SCH (08:02)
[2021-02-01] MEDS: Tiotropium 10 INH DOSE IH SCH (10:46)
[2021-02-01] MEDS: Budesonide/Formoterol 80/4.5 1 PUFF INH IH SCH ×2 (10:46→21:14)
[2021-02-02] MEDS: *HR* OxyCODONE/APAP 10/325 TABLET PO PRN ×5 (03:08→20:09)
[2021-02-02] MEDS: *HR* Enoxaparin 40 MG/0.4 ML SYRINGE SQ SCH (06:32)
[2021-02-02 07:52] LABS: Basophils % 0.4 %; Eosinophils # 0.6 K/mcL (0.0-0.6); Eosinophils % 5.5 %; Hemoglobin 7.8 g/dL (12.9-16.9); Immature Granulocytes % 1.2 % (0-4); Lymphocytes # 2.6 K/mcL (0.6-4.6); Lymphocytes % 24.7 %; Mean Corpuscular HGB Conc 31.2 g/dL (31.6-35.5); Mean Corpuscular Hemoglobin 30.6 pg (28.0-33.3); Mean Platelet Volume 8.7 fL (9.4-12.4); Monocytes % 9.2 %; Neutrophils # 6.2 K/mcL (1.6-8.9); Platelet Count 222 K/mcL (140-400); Red Blood Count 2.55 M/mcL (4.19-5.50); Red Cell Distribution Width 15.7 % (11.5-14.5); White Blood Count 10.5 K/mcL (4.3-11.1)
[2021-02-02] MEDS: Aspirin Enteric Coated 81 MG Tablet PO SCH (08:01)
[2021-02-02] MEDS: Metoprolol XL (24 HR) Succ 50 MG TAB.ER.24H PO SCH (08:01)
[2021-02-02] MEDS: Furosemide 40 MG TABLET PO SCH (08:01)
[2021-02-02] MEDS: Lactobacillus 1 EACH CAP.SPRINK PO SCH (08:01)
[2021-02-02] MEDS: Valsartan 160 MG TABLET PO SCH (08:01)
[2021-02-02] MEDS: Sennosides/Docusate Sodium TABLET PO SCH ×2 (08:01→20:07)
[2021-02-02 08:25] LABS: Alanine Aminotransferase 11 Units/L (7-52); Albumin 2.7 g/dL (3.5-5.7); Albumin/Globulin Ratio 0.9 (1.1-2.2); Alkaline Phosphatase 148 Units/L (34-104); Aspartate Amino Transferase 9 Units/L (13-39); BUN/Creatinine Ratio 14 (6-26); Bilirubin,Total 0.5 mg/dL (0.3-1.0); Blood Urea Nitrogen 12 mg/dL (8-23); Carbon Dioxide 28 mEq/L (23-29); Chloride 103 mEq/L (98-107); Glucose 93 mg/dL (70-105); Osmolality,Calculated 287 (280-300); Potassium 3.6 mEq/L (3.5-5.1); Sodium 139 mEq/L (136-145); Total Protein 5.7 g/dL (6.4-8.9); eGFR For African Americans > 60 (> 60); eGFR For Non-African Americans > 60 (> 60)
[2021-02-02] MEDS: Nicotine 14 MG PATCH.TD24 TD SCH (09:08)
[2021-02-02] MEDS: Budesonide/Formoterol 80/4.5 1 PUFF INH IH SCH ×2 (10:07→21:45)
[2021-02-02] MEDS: Tiotropium 10 INH DOSE IH SCH (10:08)
[2021-02-02 13:15] LABS: C-Reactive Protein 59 mg/L (Less than 10)
[2021-02-03] MEDS: *HR* OxyCODONE/APAP 10/325 TABLET PO PRN ×5 (01:07→19:08)
[2021-02-03] MEDS: *HR* Enoxaparin 40 MG/0.4 ML SYRINGE SQ SCH (05:34)
[2021-02-03] MEDS: Sennosides/Docusate Sodium TABLET PO SCH ×2 (08:04→19:08)
[2021-02-03] MEDS: Metoprolol XL (24 HR) Succ 50 MG TAB.ER.24H PO SCH (08:04)
[2021-02-03] MEDS: Lactobacillus 1 EACH CAP.SPRINK PO SCH (08:04)
[2021-02-03] MEDS: Nicotine 14 MG PATCH.TD24 TD SCH (08:04)
[2021-02-03] MEDS: Valsartan 160 MG TABLET PO SCH (08:04)
[2021-02-03] MEDS: Aspirin Enteric Coated 81 MG Tablet PO SCH (08:05)
[2021-02-03] MEDS: Furosemide 40 MG TABLET PO SCH (08:06)
[2021-02-03] MEDS: Budesonide/Formoterol 80/4.5 1 PUFF INH IH SCH ×2 (10:20→21:20)
[2021-02-03] MEDS: Tiotropium 10 INH DOSE IH SCH (10:21)
[2021-02-04] MEDS: *HR* OxyCODONE/APAP 10/325 TABLET PO PRN ×5 (00:26→20:22)
[2021-02-04] MEDS: *HR* Enoxaparin 40 MG/0.4 ML SYRINGE SQ SCH (05:55)
[2021-02-04] MEDS: Lactobacillus 1 EACH CAP.SPRINK PO SCH (09:17)
[2021-02-04] MEDS: Aspirin Enteric Coated 81 MG Tablet PO SCH (09:18)
[2021-02-04] MEDS: Sennosides/Docusate Sodium TABLET PO SCH ×2 (09:19→20:22)
[2021-02-04] MEDS: Acetaminophen 325 MG TABLET PO PRN (09:20)
[2021-02-04] MEDS: Furosemide 40 MG TABLET PO SCH (09:21)
[2021-02-04] MEDS: Valsartan 160 MG TABLET PO SCH (09:21)
[2021-02-04] MEDS: Metoprolol XL (24 HR) Succ 50 MG TAB.ER.24H PO SCH (09:21)
[2021-02-04] MEDS: Budesonide/Formoterol 80/4.5 1 PUFF INH IH SCH ×2 (10:02→20:36)
[2021-02-04] MEDS: Tiotropium 10 INH DOSE IH SCH (10:02)
[2021-02-04] MEDS: Nicotine 14 MG PATCH.TD24 TD SCH (10:39)
[2021-02-05] MEDS: *HR* OxyCODONE/APAP 10/325 TABLET PO PRN ×6 (00:37→23:30)
[2021-02-05] MEDS: *HR* Enoxaparin 40 MG/0.4 ML SYRINGE SQ SCH (05:31)
[2021-02-05] MEDS: Nicotine 14 MG PATCH.TD24 TD SCH (09:24)
[2021-02-05] MEDS: Furosemide 40 MG TABLET PO SCH (09:24)
[2021-02-05] MEDS: Lactobacillus 1 EACH CAP.SPRINK PO SCH (09:24)
[2021-02-05] MEDS: Aspirin Enteric Coated 81 MG Tablet PO SCH (09:24)
[2021-02-05] MEDS: Valsartan 160 MG TABLET PO SCH (09:24)
[2021-02-05] MEDS: Sennosides/Docusate Sodium TABLET PO SCH ×2 (09:25→20:21)
[2021-02-05] MEDS: Metoprolol XL (24 HR) Succ 50 MG TAB.ER.24H PO SCH (09:25)
[2021-02-05] MEDS: Tiotropium 10 INH DOSE IH SCH (09:29)
[2021-02-05] MEDS: Budesonide/Formoterol 80/4.5 1 PUFF INH IH SCH ×2 (09:29→21:33)
[2021-02-05 18:40] LABS: Bilirubin,Urine Negative (Negative); Blood,Urine Moderate (Negative); Clarity,Urine Cloudy (Clear); Color,Urine Yellow (Yellow); Glucose,Urine (UA) Normal (Normal); Ketones,Urine Negative (Negative); Leukocyte Esterase,Urine Large (Negative); Nitrite,Urine Negative (Negative); Protein,Urine Negative (Neg-Trace); Specific Gravity,Urine 1.015 (1.010-1.025); Urobilinogen,Urine Normal (Normal)
[2021-02-05 18:54] LABS: Bacteria,Urine Moderate per hpf (None-Few); RBC,Urine 15-30 per hpf (0-3); Squamous Epithelial Cell,Urine Few per hpf (None-Few); WBC,Urine 15-30 per hpf (0-3)
[2021-02-06] MEDS: *HR* Enoxaparin 40 MG/0.4 ML SYRINGE SQ SCH (05:29)
[2021-02-06] MEDS: *HR* OxyCODONE/APAP 10/325 TABLET PO PRN ×3 (05:29→20:13)
[2021-02-06] MEDS: Furosemide 40 MG TABLET PO SCH (08:17)
[2021-02-06] MEDS: Metoprolol XL (24 HR) Succ 50 MG TAB.ER.24H PO SCH (08:17)
[2021-02-06] MEDS: Sennosides/Docusate Sodium TABLET PO SCH ×2 (08:20→20:14)
[2021-02-06] MEDS: Nicotine 14 MG PATCH.TD24 TD SCH (08:20)
[2021-02-06] MEDS: Aspirin Enteric Coated 81 MG Tablet PO SCH (08:21)
[2021-02-06] MEDS: Lactobacillus 1 EACH CAP.SPRINK PO SCH (08:21)
[2021-02-06] MEDS: Valsartan 160 MG TABLET PO SCH (08:21)
[2021-02-06 08:36] LABS: Basophils % 0.4 %; Eosinophils # 0.4 K/mcL (0.0-0.6); Eosinophils % 4.6 %; Hematocrit 25.4 % (37.5-50.1); Hemoglobin 7.9 g/dL (12.9-16.9); Immature Granulocytes % 0.7 % (0-4); Lymphocytes # 2.3 K/mcL (0.6-4.6); Lymphocytes % 24.2 %; Mean Corpuscular HGB Conc 31.1 g/dL (31.6-35.5); Mean Corpuscular Hemoglobin 30.6 pg (28.0-33.3); Mean Corpuscular Volume 98.4 fL (83.0-100.0); Mean Platelet Volume 9.1 fL (9.4-12.4); Monocytes # 0.9 K/mcL (0.0-1.3); Monocytes % 9.2 %; Neutrophils # 5.9 K/mcL (1.6-8.9); Platelet Count 239 K/mcL (140-400); Red Blood Count 2.58 M/mcL (4.19-5.50); Red Cell Distribution Width 15.7 % (11.5-14.5); Segmented Neutrophils % 60.9 %; White Blood Count 9.7 K/mcL (4.3-11.1)
[2021-02-06] MEDS: Budesonide/Formoterol 80/4.5 1 PUFF INH IH SCH ×2 (09:02→22:12)
[2021-02-06] MEDS: Tiotropium 10 INH DOSE IH SCH (09:02)
[2021-02-06 09:07] LABS: Alanine Aminotransferase 11 Units/L (7-52); Albumin 2.8 g/dL (3.5-5.7); Albumin/Globulin Ratio 0.9 (1.1-2.2); Alkaline Phosphatase 136 Units/L (34-104); Aspartate Amino Transferase 11 Units/L (13-39); BUN/Creatinine Ratio 19 (6-26); Bilirubin,Total 0.5 mg/dL (0.3-1.0); Blood Urea Nitrogen 17 mg/dL (8-23); Calcium 8.3 mg/dL (8.6-10.3); Carbon Dioxide 28 mEq/L (23-29); Chloride 104 mEq/L (98-107); Globulin 3.2 g/dL (2.4-3.5); Glucose 94 mg/dL (70-105); Osmolality,Calculated 291 (280-300); Potassium 3.4 mEq/L (3.5-5.1); Sodium 140 mEq/L (136-145); eGFR For African Americans > 60 (> 60); eGFR For Non-African Americans > 60 (> 60)
[2021-02-06] MEDS: Ondansetron ODT 4 MG TAB.RAPDIS SL PRN (16:55)
[2021-02-07] MEDS: *HR* OxyCODONE/APAP 10/325 TABLET PO PRN ×5 (02:33→22:14)
[2021-02-07] MEDS: *HR* Enoxaparin 40 MG/0.4 ML SYRINGE SQ SCH (06:59)
[2021-02-07] MEDS: Budesonide/Formoterol 80/4.5 1 PUFF INH IH SCH ×2 (07:53→21:22)
[2021-02-07] MEDS: Tiotropium 10 INH DOSE IH SCH (07:54)
[2021-02-07] MEDS: Aspirin Enteric Coated 81 MG Tablet PO SCH (08:50)
[2021-02-07] MEDS: Valsartan 160 MG TABLET PO SCH (08:50)
[2021-02-07] MEDS: Lactobacillus 1 EACH CAP.SPRINK PO SCH (08:50)
[2021-02-07] MEDS: Metoprolol XL (24 HR) Succ 50 MG TAB.ER.24H PO SCH (08:50)
[2021-02-07] MEDS: Furosemide 40 MG TABLET PO SCH (08:50)
[2021-02-07] MEDS: Sennosides/Docusate Sodium TABLET PO SCH ×2 (08:51→20:31)
[2021-02-07] MEDS: Nicotine 14 MG PATCH.TD24 TD SCH (12:05)
[2021-02-07] MEDS: Acetaminophen 325 MG TABLET PO PRN (16:16)
[2021-02-08] MEDS: *HR* OxyCODONE/APAP 10/325 TABLET PO PRN ×5 (02:51→20:49)
[2021-02-08] MEDS: *HR* Enoxaparin 40 MG/0.4 ML SYRINGE SQ SCH (05:25)
[2021-02-08] MEDS: Metoprolol XL (24 HR) Succ 50 MG TAB.ER.24H PO SCH (07:30)
[2021-02-08] MEDS: Aspirin Enteric Coated 81 MG Tablet PO SCH (07:30)
[2021-02-08] MEDS: Lactobacillus 1 EACH CAP.SPRINK PO SCH (07:30)
[2021-02-08] MEDS: Nicotine 14 MG PATCH.TD24 TD SCH (07:31)
[2021-02-08] MEDS: Sennosides/Docusate Sodium TABLET PO SCH ×2 (07:31→20:50)
[2021-02-08] MEDS: Valsartan 160 MG TABLET PO SCH ×2 (07:31→08:46)
[2021-02-08] MEDS: Furosemide 40 MG TABLET PO SCH (07:31)
[2021-02-08] MEDS: Budesonide/Formoterol 80/4.5 1 PUFF INH IH SCH (10:23)
[2021-02-08] MEDS: Tiotropium 10 INH DOSE IH SCH (10:23)
[2021-02-09] MEDS: Budesonide/Formoterol 80/4.5 1 PUFF INH IH SCH ×3 (02:19→21:52)
[2021-02-09] MEDS: *HR* OxyCODONE/APAP 10/325 TABLET PO PRN ×5 (03:04→20:52)
[2021-02-09] MEDS: *HR* Enoxaparin 40 MG/0.4 ML SYRINGE SQ SCH (05:25)
[2021-02-09 07:18] LABS: Basophils % 0.4 %; Eosinophils # 0.6 K/mcL (0.0-0.6); Eosinophils % 5.6 %; Hematocrit 25.1 % (37.5-50.1); Hemoglobin 7.7 g/dL (12.9-16.9); Immature Granulocytes % 0.9 % (0-4); Lymphocytes # 1.8 K/mcL (0.6-4.6); Lymphocytes % 17.7 %; Mean Corpuscular HGB Conc 30.7 g/dL (31.6-35.5); Mean Corpuscular Hemoglobin 30.4 pg (28.0-33.3); Mean Corpuscular Volume 99.2 fL (83.0-100.0); Mean Platelet Volume 9.3 fL (9.4-12.4); Monocytes % 9.3 %; Neutrophils # 6.8 K/mcL (1.6-8.9); Platelet Count 232 K/mcL (140-400); Red Blood Count 2.53 M/mcL (4.19-5.50); Red Cell Distribution Width 15.6 % (11.5-14.5); Segmented Neutrophils % 66.1 %; White Blood Count 10.3 K/mcL (4.3-11.1)
[2021-02-09 07:28] LABS: BUN/Creatinine Ratio 19 (6-26); Blood Urea Nitrogen 21 mg/dL (8-23); Calcium 8.2 mg/dL (8.6-10.3); Carbon Dioxide 27 mEq/L (23-29); Chloride 105 mEq/L (98-107); Glucose 94 mg/dL (70-105); Osmolality,Calculated 291 (280-300); Sodium 139 mEq/L (136-145); eGFR For African Americans > 60 (> 60); eGFR For Non-African Americans > 60 (> 60)
[2021-02-09] MEDS: Furosemide 40 MG TABLET PO SCH (08:13)
[2021-02-09] MEDS: Lactobacillus 1 EACH CAP.SPRINK PO SCH (08:13)
[2021-02-09] MEDS: Sennosides/Docusate Sodium TABLET PO SCH ×2 (08:13→20:53)
[2021-02-09] MEDS: Valsartan 160 MG TABLET PO SCH (08:13)
[2021-02-09] MEDS: Metoprolol XL (24 HR) Succ 50 MG TAB.ER.24H PO SCH (08:14)
[2021-02-09] MEDS: Aspirin Enteric Coated 81 MG Tablet PO SCH (08:14)
[2021-02-09] MEDS: Nicotine 14 MG PATCH.TD24 TD SCH (08:14)
[2021-02-09 09:11] LABS: C-Reactive Protein 152 mg/L (Less than 10)
[2021-02-09] MEDS: Tiotropium 10 INH DOSE IH SCH (09:32)
[2021-02-10] MEDS: *HR* OxyCODONE/APAP 10/325 TABLET PO PRN ×5 (02:39→20:44)
[2021-02-10] MEDS: *HR* Enoxaparin 40 MG/0.4 ML SYRINGE SQ SCH (06:04)
[2021-02-10] MEDS: Tiotropium 10 INH DOSE IH SCH (08:20)
[2021-02-10] MEDS: Budesonide/Formoterol 80/4.5 1 PUFF INH IH SCH ×2 (08:20→21:53)
[2021-02-10] MEDS: Lactobacillus 1 EACH CAP.SPRINK PO SCH (10:55)
[2021-02-10] MEDS: Metoprolol XL (24 HR) Succ 50 MG TAB.ER.24H PO SCH (10:56)
[2021-02-10] MEDS: Aspirin Enteric Coated 81 MG Tablet PO SCH (10:56)
[2021-02-10] MEDS: Furosemide 40 MG TABLET PO SCH (10:56)
[2021-02-10] MEDS: Nicotine 14 MG PATCH.TD24 TD SCH (10:57)
[2021-02-10] MEDS: Sennosides/Docusate Sodium TABLET PO SCH ×2 (10:57→20:44)
[2021-02-10] MEDS: Valsartan 160 MG TABLET PO SCH (10:57)
[2021-02-11] MEDS: *HR* OxyCODONE/APAP 10/325 TABLET PO PRN ×5 (02:32→23:58)
[2021-02-11] MEDS: *HR* Enoxaparin 40 MG/0.4 ML SYRINGE SQ SCH (05:11)
[2021-02-11] MEDS: Lactobacillus 1 EACH CAP.SPRINK PO SCH (10:41)
[2021-02-11] MEDS: Aspirin Enteric Coated 81 MG Tablet PO SCH (10:41)
[2021-02-11] MEDS: Sennosides/Docusate Sodium TABLET PO SCH ×2 (10:42→19:45)
[2021-02-11] MEDS: Furosemide 40 MG TABLET PO SCH (10:42)
[2021-02-11] MEDS: Metoprolol XL (24 HR) Succ 50 MG TAB.ER.24H PO SCH (10:42)
[2021-02-11] MEDS: Valsartan 160 MG TABLET PO SCH (10:46)
[2021-02-11] MEDS: Nicotine 14 MG PATCH.TD24 TD SCH (10:47)
[2021-02-11] MEDS: Budesonide/Formoterol 80/4.5 1 PUFF INH IH SCH ×2 (11:33→21:33)
[2021-02-11] MEDS: Tiotropium 10 INH DOSE IH SCH (11:34)
[2021-02-12] MEDS: *HR* OxyCODONE/APAP 10/325 TABLET PO PRN ×4 (04:58→20:03)
[2021-02-12] MEDS: *HR* Enoxaparin 40 MG/0.4 ML SYRINGE SQ SCH (04:58)
[2021-02-12] MEDS: Valsartan 160 MG TABLET PO SCH (08:15)
[2021-02-12] MEDS: Metoprolol XL (24 HR) Succ 50 MG TAB.ER.24H PO SCH (08:16)
[2021-02-12] MEDS: Furosemide 40 MG TABLET PO SCH (08:20)
[2021-02-12] MEDS: Lactobacillus 1 EACH CAP.SPRINK PO SCH (08:20)
[2021-02-12] MEDS: Sennosides/Docusate Sodium TABLET PO SCH ×2 (08:20→20:04)
[2021-02-12] MEDS: Aspirin Enteric Coated 81 MG Tablet PO SCH (08:20)
[2021-02-12] MEDS: Nicotine 14 MG PATCH.TD24 TD SCH (08:20)
[2021-02-12] MEDS: Budesonide/Formoterol 80/4.5 1 PUFF INH IH SCH ×2 (10:22→22:25)
[2021-02-12] MEDS: Tiotropium 10 INH DOSE IH SCH (10:23)
[2021-02-12 15:43] LABS: Adenovirus Not Detected (Not Detect); Coronavirus 229E Not Detected (Not Detect); Coronavirus HKU1 Not Detected (Not Detect); Coronavirus NL63 Not Detected (Not Detect); Coronavirus OC43 Not Detected (Not Detect)
[2021-02-12] MEDS ORDERED: Benzonatate 100 MG CAPSULE PO PRN (15:58)
[2021-02-12 16:00] LABS: Bordetella Pertussis Not Detected (Not Detect); Chlamydophila pneumoniae Not Detected (Not Detect); Human Metapneumovirus Not Detected (Not Detect); Human Rhinovirus/Enterovirus Not Detected (Not Detect); Influenza A Subtype 2009 H1 Not Detected (Not Detect); Influenza B Not Detected (Not Detect); Mycoplasma pneumoniae Not Detected (Not Detect); Parainfluenza Virus 1 Not Detected (Not Detect); Parainfluenza Virus 2 Not Detected (Not Detect); Parainfluenza Virus 3 Not Detected (Not Detect); Parainfluenza Virus 4 Not Detected (Not Detect); Respiratory Syncytial Virus Not Detected (Not Detect); SARS-CoV-2 DETECTED (Not Detect)
[2021-02-13] MEDS: *HR* OxyCODONE/APAP 10/325 TABLET PO PRN ×5 (01:15→19:43)
[2021-02-13] MEDS: *HR* Enoxaparin 40 MG/0.4 ML SYRINGE SQ SCH (05:13)
[2021-02-13] MEDS: Metoprolol XL (24 HR) Succ 50 MG TAB.ER.24H PO SCH (08:18)
[2021-02-13] MEDS: Furosemide 40 MG TABLET PO SCH (08:18)
[2021-02-13] MEDS: Aspirin Enteric Coated 81 MG Tablet PO SCH (08:18)
[2021-02-13] MEDS: Sennosides/Docusate Sodium TABLET PO SCH ×2 (08:18→21:36)
[2021-02-13] MEDS: Lactobacillus 1 EACH CAP.SPRINK PO SCH (08:18)
[2021-02-13] MEDS: Valsartan 160 MG TABLET PO SCH (08:19)
[2021-02-13] MEDS: Nicotine 14 MG PATCH.TD24 TD SCH (09:31)
[2021-02-13] MEDS: Tiotropium 10 INH DOSE IH SCH (10:57)
[2021-02-13] MEDS: Budesonide/Formoterol 80/4.5 1 PUFF INH IH SCH (10:57)
[2021-02-13 11:46] LABS: Basophils # 0.1 K/mcL (0.0-0.2); Basophils % 0.9 %; Eosinophils # 0.2 K/mcL (0.0-0.6); Hematocrit 26.7 % (37.5-50.1); Hemoglobin 8.3 g/dL (12.9-16.9); Lymphocytes # 1.3 K/mcL (0.6-4.6); Lymphocytes % 19.1 %; Mean Corpuscular HGB Conc 31.1 g/dL (31.6-35.5); Mean Corpuscular Hemoglobin 30.6 pg (28.0-33.3); Mean Corpuscular Volume 98.5 fL (83.0-100.0); Mean Platelet Volume 8.5 fL (9.4-12.4); Monocytes # 1.1 K/mcL (0.0-1.3); Monocytes % 15.6 %; Neutrophils # 4.1 K/mcL (1.6-8.9); Platelet Count 218 K/mcL (140-400); Red Blood Count 2.71 M/mcL (4.19-5.50); Red Cell Distribution Width 16.2 % (11.5-14.5); Segmented Neutrophils % 58.4 %
[2021-02-13 12:05] LABS: Alanine Aminotransferase 15 Units/L (7-52); Albumin 3.1 g/dL (3.5-5.7); Albumin/Globulin Ratio 0.9 (1.1-2.2); Alkaline Phosphatase 106 Units/L (34-104); Aspartate Amino Transferase 17 Units/L (13-39); BUN/Creatinine Ratio 15 (6-26); Bilirubin,Total 0.5 mg/dL (0.3-1.0); Blood Urea Nitrogen 14 mg/dL (8-23); Calcium 8.7 mg/dL (8.6-10.3); Carbon Dioxide 28 mEq/L (23-29); Chloride 101 mEq/L (98-107); Globulin 3.4 g/dL (2.4-3.5); Glucose 108 mg/dL (70-105); Osmolality,Calculated 285 (280-300); Potassium 3.9 mEq/L (3.5-5.1); Sodium 137 mEq/L (136-145); Total Protein 6.5 g/dL (6.4-8.9); eGFR For African Americans > 60 (> 60); eGFR For Non-African Americans > 60 (> 60)
[2021-02-13] MEDS ORDERED: Isovue-370 500 ML BOTTLE IVP ONE (15:35)
[2021-02-13] MEDS ORDERED: *HR* Heparin 5,000 UNIT/ML VIAL IVP PRN (17:24)
[2021-02-13] MEDS ORDERED: *HR* Heparin 5,000 UNIT/ML VIAL IVP ONE (17:24)
[2021-02-13] MEDS: Heparin 25,000UNIT/250ML 1/2NS 25,000 UNIT/250 ML IV.SOLN IVC SCH (18:45)
[2021-02-14] MEDS: Budesonide/Formoterol 80/4.5 1 PUFF INH IH SCH ×3 (00:06→22:08)
[2021-02-14] MEDS: *HR* OxyCODONE/APAP 10/325 TABLET PO PRN ×5 (00:20→21:05)
[2021-02-14 02:22] LABS: Hematocrit 25.5 % (37.5-50.1); Hemoglobin 7.9 g/dL (12.9-16.9); Mean Corpuscular Hemoglobin 30.4 pg (28.0-33.3); Mean Corpuscular Volume 98.1 fL (83.0-100.0); Mean Platelet Volume 8.9 fL (9.4-12.4); Platelet Count 211 K/mcL (140-400); Red Cell Distribution Width 16.2 % (11.5-14.5); White Blood Count 7.5 K/mcL (4.3-11.1)
[2021-02-14 02:30] LABS: Heparin anti-factor XA UFH 0.13 IU/mL (0.30-0.70)
[2021-02-14 02:31] LABS: INR 1.3; Prothrombin Time 14.2 Seconds (9.4-12.1)
[2021-02-14 02:41] LABS: BUN/Creatinine Ratio 14 (6-26); Blood Urea Nitrogen 14 mg/dL (8-23); Calcium 8.4 mg/dL (8.6-10.3); Carbon Dioxide 27 mEq/L (23-29); Chloride 102 mEq/L (98-107); Glucose 95 mg/dL (70-105); Osmolality,Calculated 284 (280-300); Potassium 3.7 mEq/L (3.5-5.1); Sodium 137 mEq/L (136-145); eGFR For African Americans > 60 (> 60); eGFR For Non-African Americans > 60 (> 60)
[2021-02-14] MEDS: *HR* Heparin 5,000 UNIT/ML VIAL IVP PRN ×2 (03:39→11:17)
[2021-02-14] MEDS: Tiotropium 10 INH DOSE IH SCH (08:50)
[2021-02-14] MEDS: Metoprolol XL (24 HR) Succ 50 MG TAB.ER.24H PO SCH (08:52)
[2021-02-14] MEDS: Aspirin Enteric Coated 81 MG Tablet PO SCH (08:53)
[2021-02-14] MEDS: Lactobacillus 1 EACH CAP.SPRINK PO SCH (08:53)
[2021-02-14] MEDS: Sennosides/Docusate Sodium TABLET PO SCH ×2 (08:54→21:04)
[2021-02-14] MEDS: Furosemide 40 MG TABLET PO SCH (08:55)
[2021-02-14] MEDS: Valsartan 160 MG TABLET PO SCH (08:56)
[2021-02-14] MEDS: Nicotine 14 MG PATCH.TD24 TD SCH (08:57)
[2021-02-14 09:26] LABS: Basophils % 0.6 %; Eosinophils # 0.3 K/mcL (0.0-0.6); Eosinophils % 4.5 %; Hematocrit 27.5 % (37.5-50.1); Hemoglobin 8.6 g/dL (12.9-16.9); Immature Granulocytes % 2.2 % (0-4); Lymphocytes # 1.7 K/mcL (0.6-4.6); Lymphocytes % 26.9 %; Mean Corpuscular HGB Conc 31.3 g/dL (31.6-35.5); Mean Corpuscular Hemoglobin 30.7 pg (28.0-33.3); Mean Corpuscular Volume 98.2 fL (83.0-100.0); Mean Platelet Volume 8.8 fL (9.4-12.4); Monocytes % 15.2 %; Neutrophils # 3.3 K/mcL (1.6-8.9); Platelet Count 234 K/mcL (140-400); Red Cell Distribution Width 16.2 % (11.5-14.5); Segmented Neutrophils % 50.6 %; White Blood Count 6.5 K/mcL (4.3-11.1)
[2021-02-14 09:42] LABS: BUN/Creatinine Ratio 13 (6-26); Blood Urea Nitrogen 13 mg/dL (8-23); Calcium 8.6 mg/dL (8.6-10.3); Carbon Dioxide 26 mEq/L (23-29); Chloride 102 mEq/L (98-107); Glucose 106 mg/dL (70-105); Osmolality,Calculated 285 (280-300); Potassium 3.9 mEq/L (3.5-5.1); Sodium 137 mEq/L (136-145); eGFR For African Americans > 60 (> 60); eGFR For Non-African Americans > 60 (> 60)
[2021-02-14] MEDS: Heparin 25,000UNIT/250ML 1/2NS 25,000 UNIT/250 ML IV.SOLN IVC SCH (11:22)
[2021-02-14] MEDS ORDERED: Saline Nasal Spray 44 ML BOTTLE NS PRN (18:12)
[2021-02-15] MEDS: *HR* OxyCODONE/APAP 10/325 TABLET PO PRN ×6 (01:30→22:49)
[2021-02-15] MEDS: Heparin 25,000UNIT/250ML 1/2NS 25,000 UNIT/250 ML IV.SOLN IVC SCH ×2 (01:30→22:50)
[2021-02-15 02:41] LABS: BUN/Creatinine Ratio 16 (6-26); Blood Urea Nitrogen 15 mg/dL (8-23); Calcium 8.2 mg/dL (8.6-10.3); Carbon Dioxide 27 mEq/L (23-29); Chloride 102 mEq/L (98-107); Glucose 98 mg/dL (70-105); Osmolality,Calculated 287 (280-300); Potassium 3.7 mEq/L (3.5-5.1); Sodium 138 mEq/L (136-145); eGFR For African Americans > 60 (> 60); eGFR For Non-African Americans > 60 (> 60)
[2021-02-15 03:26] LABS: Basophils % 0.6 %; Eosinophils # 0.5 K/mcL (0.0-0.6); Eosinophils % 6.7 %; Hematocrit 26.4 % (37.5-50.1); Hemoglobin 8.2 g/dL (12.9-16.9); Immature Granulocytes % 1.8 % (0-4); Lymphocytes % 28.8 %; Mean Corpuscular HGB Conc 31.1 g/dL (31.6-35.5); Mean Corpuscular Hemoglobin 30.7 pg (28.0-33.3); Mean Corpuscular Volume 98.9 fL (83.0-100.0); Mean Platelet Volume 9.9 fL (9.4-12.4); Monocytes # 0.9 K/mcL (0.0-1.3); Monocytes % 13.6 %; Neutrophils # 3.3 K/mcL (1.6-8.9); Platelet Count 250 K/mcL (140-400); Red Blood Count 2.67 M/mcL (4.19-5.50); Red Cell Distribution Width 16.1 % (11.5-14.5); Segmented Neutrophils % 48.5 %; White Blood Count 6.8 K/mcL (4.3-11.1)
[2021-02-15] MEDS: Budesonide/Formoterol 80/4.5 1 PUFF INH IH SCH ×2 (07:57→22:53)
[2021-02-15] MEDS: Tiotropium 10 INH DOSE IH SCH (07:57)
[2021-02-15] MEDS: Furosemide 40 MG TABLET PO SCH (08:32)
[2021-02-15] MEDS: Sennosides/Docusate Sodium TABLET PO SCH ×2 (08:32→18:58)
[2021-02-15] MEDS: Lactobacillus 1 EACH CAP.SPRINK PO SCH (08:33)
[2021-02-15] MEDS: Valsartan 160 MG TABLET PO SCH (08:33)
[2021-02-15] MEDS: Aspirin Enteric Coated 81 MG Tablet PO SCH (08:33)
[2021-02-15] MEDS: Metoprolol XL (24 HR) Succ 50 MG TAB.ER.24H PO SCH (08:33)
[2021-02-15 09:58] LABS: C-Reactive Protein 60 mg/L (Less than 10)
[2021-02-15] MEDS: Nicotine 14 MG PATCH.TD24 TD SCH (10:08)
[2021-02-16] MEDS: *HR* OxyCODONE/APAP 10/325 TABLET PO PRN ×5 (03:51→22:16)
[2021-02-16] MEDS: Tiotropium 10 INH DOSE IH SCH (08:08)
[2021-02-16] MEDS: Budesonide/Formoterol 80/4.5 1 PUFF INH IH SCH ×2 (08:08→21:56)
[2021-02-16 08:30] LABS: Basophils % 0.6 %; Eosinophils # 0.5 K/mcL (0.0-0.6); Eosinophils % 8.4 %; Hematocrit 27.7 % (37.5-50.1); Hemoglobin 8.6 g/dL (12.9-16.9); Immature Granulocytes % 1.3 % (0-4); Lymphocytes # 2.4 K/mcL (0.6-4.6); Lymphocytes % 37.4 %; Mean Corpuscular Hemoglobin 30.4 pg (28.0-33.3); Mean Corpuscular Volume 97.9 fL (83.0-100.0); Mean Platelet Volume 9.1 fL (9.4-12.4); Monocytes # 0.6 K/mcL (0.0-1.3); Monocytes % 9.8 %; Neutrophils # 2.7 K/mcL (1.6-8.9); Platelet Count 239 K/mcL (140-400); Red Blood Count 2.83 M/mcL (4.19-5.50); Red Cell Distribution Width 15.9 % (11.5-14.5); Segmented Neutrophils % 42.5 %; White Blood Count 6.3 K/mcL (4.3-11.1)
[2021-02-16 08:46] LABS: BUN/Creatinine Ratio 12 (6-26); Blood Urea Nitrogen 11 mg/dL (8-23); Calcium 8.5 mg/dL (8.6-10.3); Carbon Dioxide 27 mEq/L (23-29); Chloride 105 mEq/L (98-107); Glucose 108 mg/dL (70-105); Osmolality,Calculated 290 (280-300); Potassium 3.8 mEq/L (3.5-5.1); Sodium 140 mEq/L (136-145); eGFR For African Americans > 60 (> 60); eGFR For Non-African Americans > 60 (> 60)
[2021-02-16] MEDS: Apixaban 5 MG TABLET PO SCH ×3 (09:00→22:15)
[2021-02-16] MEDS: Valsartan 160 MG TABLET PO SCH (09:13)
[2021-02-16] MEDS: Lactobacillus 1 EACH CAP.SPRINK PO SCH (09:13)
[2021-02-16] MEDS: Furosemide 40 MG TABLET PO SCH (09:14)
[2021-02-16] MEDS: Aspirin Enteric Coated 81 MG Tablet PO SCH (09:14)
[2021-02-16] MEDS: Metoprolol XL (24 HR) Succ 50 MG TAB.ER.24H PO SCH (09:15)
[2021-02-16] MEDS: Sennosides/Docusate Sodium TABLET PO SCH ×2 (09:15→22:15)
[2021-02-16] MEDS: Nicotine 14 MG PATCH.TD24 TD SCH (09:15)
[2021-02-17] MEDS: *HR* OxyCODONE/APAP 10/325 TABLET PO PRN ×3 (02:55→19:21)
[2021-02-17] MEDS: Nicotine 14 MG PATCH.TD24 TD SCH (08:52)
[2021-02-17] MEDS: Lactobacillus 1 EACH CAP.SPRINK PO SCH (08:53)
[2021-02-17] MEDS: Metoprolol XL (24 HR) Succ 50 MG TAB.ER.24H PO SCH (08:53)
[2021-02-17] MEDS: Apixaban 5 MG TABLET PO SCH ×2 (08:53→19:21)
[2021-02-17] MEDS: Valsartan 160 MG TABLET PO SCH (08:54)
[2021-02-17] MEDS: Aspirin Enteric Coated 81 MG Tablet PO SCH (08:54)
[2021-02-17] MEDS: Furosemide 40 MG TABLET PO SCH (08:54)
[2021-02-17] MEDS: Sennosides/Docusate Sodium TABLET PO SCH ×2 (09:27→19:21)
[2021-02-17] MEDS: Budesonide/Formoterol 80/4.5 1 PUFF INH IH SCH ×2 (10:10→21:42)
[2021-02-17] MEDS: Tiotropium 10 INH DOSE IH SCH (10:11)
[2021-02-18] MEDS: *HR* OxyCODONE/APAP 10/325 TABLET PO PRN ×5 (00:57→22:14)
[2021-02-18] MEDS: Valsartan 160 MG TABLET PO SCH (08:21)
[2021-02-18] MEDS: Lactobacillus 1 EACH CAP.SPRINK PO SCH (08:28)
[2021-02-18] MEDS: Metoprolol XL (24 HR) Succ 50 MG TAB.ER.24H PO SCH (08:28)
[2021-02-18] MEDS: Aspirin Enteric Coated 81 MG Tablet PO SCH (08:28)
[2021-02-18] MEDS: Furosemide 40 MG TABLET PO SCH (08:28)
[2021-02-18] MEDS: Apixaban 5 MG TABLET PO SCH ×2 (08:29→20:08)
[2021-02-18] MEDS: Nicotine 14 MG PATCH.TD24 TD SCH (08:29)
[2021-02-18] MEDS: Sennosides/Docusate Sodium TABLET PO SCH ×2 (08:29→20:08)
[2021-02-18] MEDS: Budesonide/Formoterol 80/4.5 1 PUFF INH IH SCH ×2 (10:42→22:14)
[2021-02-18] MEDS: Tiotropium 10 INH DOSE IH SCH (10:43)
[2021-02-19] MEDS: *HR* OxyCODONE/APAP 10/325 TABLET PO PRN ×4 (03:04→22:28)
[2021-02-19] MEDS: Metoprolol XL (24 HR) Succ 50 MG TAB.ER.24H PO SCH (08:25)
[2021-02-19] MEDS: Aspirin Enteric Coated 81 MG Tablet PO SCH (08:25)
[2021-02-19] MEDS: Sennosides/Docusate Sodium TABLET PO SCH ×2 (08:25→20:54)
[2021-02-19] MEDS: Lactobacillus 1 EACH CAP.SPRINK PO SCH (08:25)
[2021-02-19] MEDS: Apixaban 5 MG TABLET PO SCH ×2 (08:26→20:55)
[2021-02-19] MEDS: Nicotine 14 MG PATCH.TD24 TD SCH (08:26)
[2021-02-19] MEDS: Furosemide 40 MG TABLET PO SCH (08:26)
[2021-02-19] MEDS: Valsartan 160 MG TABLET PO SCH (08:26)
[2021-02-19 08:43] LABS: Hematocrit 28.7 % (37.5-50.1); Hemoglobin 8.9 g/dL (12.9-16.9); Mean Corpuscular Hemoglobin 30.3 pg (28.0-33.3); Mean Corpuscular Volume 97.6 fL (83.0-100.0); Mean Platelet Volume 9.6 fL (9.4-12.4); Platelet Count 253 K/mcL (140-400); Red Blood Count 2.94 M/mcL (4.19-5.50); White Blood Count 9.4 K/mcL (4.3-11.1)
[2021-02-19 08:55] LABS: BUN/Creatinine Ratio 18 (6-26); Blood Urea Nitrogen 17 mg/dL (8-23); Calcium 8.8 mg/dL (8.6-10.3); Carbon Dioxide 27 mEq/L (23-29); Chloride 104 mEq/L (98-107); Glucose 89 mg/dL (70-105); Osmolality,Calculated 291 (280-300); Potassium 3.8 mEq/L (3.5-5.1); Sodium 140 mEq/L (136-145); eGFR For African Americans > 60 (> 60); eGFR For Non-African Americans > 60 (> 60)
[2021-02-19] MEDS: Tiotropium 10 INH DOSE IH SCH (09:09)
[2021-02-19] MEDS: Budesonide/Formoterol 80/4.5 1 PUFF INH IH SCH ×2 (09:09→23:02)
[2021-02-20] MEDS: *HR* OxyCODONE/APAP 10/325 TABLET PO PRN ×4 (03:19→20:45)
[2021-02-20] MEDS: Sennosides/Docusate Sodium TABLET PO SCH ×2 (08:24→20:44)
[2021-02-20] MEDS: Valsartan 160 MG TABLET PO SCH (08:24)
[2021-02-20] MEDS: Aspirin Enteric Coated 81 MG Tablet PO SCH (08:33)
[2021-02-20] MEDS: Nicotine 14 MG PATCH.TD24 TD SCH (08:33)
[2021-02-20] MEDS: Lactobacillus 1 EACH CAP.SPRINK PO SCH (08:33)
[2021-02-20] MEDS: Furosemide 40 MG TABLET PO SCH (08:34)
[2021-02-20] MEDS: Apixaban 5 MG TABLET PO SCH ×2 (08:34→20:44)
[2021-02-20] MEDS: Metoprolol XL (24 HR) Succ 50 MG TAB.ER.24H PO SCH (08:34)
[2021-02-20] MEDS: Budesonide/Formoterol 80/4.5 1 PUFF INH IH SCH ×2 (09:17→22:08)
[2021-02-20] MEDS: Tiotropium 10 INH DOSE IH SCH (09:17)
[2021-02-20 15:08] LABS: Bilirubin,Urine Negative (Negative); Blood,Urine Trace-intact (Negative); Clarity,Urine Clear (Clear); Color,Urine Yellow (Yellow); Glucose,Urine (UA) Normal (Normal); Ketones,Urine Negative (Negative); Leukocyte Esterase,Urine Moderate (Negative); Nitrite,Urine Positive (Negative); Protein,Urine Negative (Neg-Trace); Urobilinogen,Urine Normal (Normal)
[2021-02-20 15:14] LABS: Bacteria,Urine Many per hpf (None-Few); WBC,Urine 50-100 per hpf (0-3)
[2021-02-21] MEDS: *HR* OxyCODONE/APAP 10/325 TABLET PO PRN ×5 (04:44→22:36)
[2021-02-21] MEDS: Furosemide 40 MG TABLET PO SCH (09:04)
[2021-02-21] MEDS: Valsartan 160 MG TABLET PO SCH (09:04)
[2021-02-21] MEDS: Lactobacillus 1 EACH CAP.SPRINK PO SCH (09:04)
[2021-02-21] MEDS: Aspirin Enteric Coated 81 MG Tablet PO SCH (09:05)
[2021-02-21] MEDS: Apixaban 5 MG TABLET PO SCH ×2 (09:05→20:28)
[2021-02-21] MEDS: Nicotine 14 MG PATCH.TD24 TD SCH (09:05)
[2021-02-21] MEDS: Metoprolol XL (24 HR) Succ 50 MG TAB.ER.24H PO SCH (09:05)
[2021-02-21] MEDS: Sennosides/Docusate Sodium TABLET PO SCH ×2 (09:05→20:26)
[2021-02-21] MEDS: Sulfamethoxazole/Trimeth DS 1 EACH TABLET PO SCH ×2 (11:04→20:28)
[2021-02-21] MEDS: Tiotropium 10 INH DOSE IH SCH (11:14)
[2021-02-21] MEDS: Budesonide/Formoterol 80/4.5 1 PUFF INH IH SCH ×2 (11:14→20:43)
[2021-02-21] MEDS: Acetaminophen 325 MG TABLET PO PRN (20:28)
[2021-02-21] MEDS ORDERED: 0.9 % Sodium Chloride 500 ML IVC ONE (22:13)
[2021-02-21 22:44] LABS: Basophils % 0.3 %; Eosinophils # 0.3 K/mcL (0.0-0.6); Eosinophils % 2.3 %; Hematocrit 28.5 % (37.5-50.1); Hemoglobin 8.8 g/dL (12.9-16.9); Lymphocytes # 2.5 K/mcL (0.6-4.6); Lymphocytes % 18.8 %; Mean Corpuscular HGB Conc 30.9 g/dL (31.6-35.5); Mean Corpuscular Hemoglobin 29.9 pg (28.0-33.3); Mean Corpuscular Volume 96.9 fL (83.0-100.0); Monocytes # 1.9 K/mcL (0.0-1.3); Monocytes % 14.7 %; Neutrophils # 8.3 K/mcL (1.6-8.9); Platelet Count 262 K/mcL (140-400); Red Blood Count 2.94 M/mcL (4.19-5.50); Red Cell Distribution Width 15.9 % (11.5-14.5); Segmented Neutrophils % 62.9 %; White Blood Count 13.2 K/mcL (4.3-11.1)
[2021-02-21 23:03] LABS: Alanine Aminotransferase 8 Units/L (7-52); Albumin/Globulin Ratio 0.8 (1.1-2.2); Alkaline Phosphatase 102 Units/L (34-104); Aspartate Amino Transferase 10 Units/L (13-39); BUN/Creatinine Ratio 22 (6-26); Bilirubin,Total 0.6 mg/dL (0.3-1.0); Blood Urea Nitrogen 27 mg/dL (8-23); Calcium 8.7 mg/dL (8.6-10.3); Carbon Dioxide 27 mEq/L (23-29); Chloride 99 mEq/L (98-107); Globulin 3.6 g/dL (2.4-3.5); Glucose 112 mg/dL (70-105); Osmolality,Calculated 284 (280-300); Sodium 134 mEq/L (136-145); Total Protein 6.6 g/dL (6.4-8.9); eGFR For African Americans > 60 (> 60); eGFR For Non-African Americans > 60 (> 60)
[2021-02-22] MEDS: *HR* OxyCODONE/APAP 10/325 TABLET PO PRN ×4 (03:45→18:31)
[2021-02-22] MEDS: Nicotine 14 MG PATCH.TD24 TD SCH (09:40)
[2021-02-22] MEDS: Sulfamethoxazole/Trimeth DS 1 EACH TABLET PO SCH ×2 (09:40→20:14)
[2021-02-22] MEDS: Aspirin Enteric Coated 81 MG Tablet PO SCH (09:41)
[2021-02-22] MEDS: Apixaban 5 MG TABLET PO SCH ×2 (09:41→20:14)
[2021-02-22] MEDS: Lactobacillus 1 EACH CAP.SPRINK PO SCH (09:42)
[2021-02-22] MEDS: Furosemide 40 MG TABLET PO SCH (09:42)
[2021-02-22] MEDS: Sennosides/Docusate Sodium TABLET PO SCH ×2 (09:42→20:16)
[2021-02-22] MEDS: Metoprolol XL (24 HR) Succ 50 MG TAB.ER.24H PO SCH (09:42)
[2021-02-22] MEDS: Valsartan 160 MG TABLET PO SCH (09:45)
[2021-02-22] MEDS: Budesonide/Formoterol 80/4.5 1 PUFF INH IH SCH ×2 (09:50→19:38)
[2021-02-22] MEDS: Tiotropium 10 INH DOSE IH SCH (09:50)
[2021-02-22] MEDS ORDERED: 0.9 % Sodium Chloride 1,000 ML IVC SCH (11:45)
[2021-02-22] MEDS: cefTRIAXone 2,000 MG in 0.9 % Sodium Chloride Mini Bag 100 ML IVPB SCH (22:15)
[2021-02-23] MEDS: *HR* OxyCODONE/APAP 10/325 TABLET PO PRN ×5 (00:20→20:53)
[2021-02-23] MEDS: Metoprolol XL (24 HR) Succ 50 MG TAB.ER.24H PO SCH (07:21)
[2021-02-23] MEDS: Aspirin Enteric Coated 81 MG Tablet PO SCH (07:21)
[2021-02-23] MEDS: Lactobacillus 1 EACH CAP.SPRINK PO SCH (07:21)
[2021-02-23] MEDS: Nicotine 14 MG PATCH.TD24 TD SCH (07:21)
[2021-02-23] MEDS: Sulfamethoxazole/Trimeth DS 1 EACH TABLET PO SCH ×2 (07:21→20:52)
[2021-02-23] MEDS: Sennosides/Docusate Sodium TABLET PO SCH ×2 (07:22→20:53)
[2021-02-23] MEDS: Valsartan 160 MG TABLET PO SCH (07:32)
[2021-02-23] MEDS: Apixaban 5 MG TABLET PO SCH ×2 (08:17→20:52)
[2021-02-23] MEDS: Furosemide 20 MG TABLET PO SCH (08:18)
[2021-02-23 09:26] LABS: Basophils # 0.1 K/mcL (0.0-0.2); Basophils % 0.5 %; Eosinophils # 0.4 K/mcL (0.0-0.6); Eosinophils % 4.1 %; Hemoglobin 8.2 g/dL (12.9-16.9); Lymphocytes # 1.5 K/mcL (0.6-4.6); Lymphocytes % 14.3 %; Mean Corpuscular HGB Conc 31.5 g/dL (31.6-35.5); Mean Corpuscular Hemoglobin 30.5 pg (28.0-33.3); Mean Corpuscular Volume 96.7 fL (83.0-100.0); Mean Platelet Volume 9.2 fL (9.4-12.4); Monocytes # 1.3 K/mcL (0.0-1.3); Monocytes % 12.1 %; Platelet Count 245 K/mcL (140-400); Red Blood Count 2.69 M/mcL (4.19-5.50); Red Cell Distribution Width 16.1 % (11.5-14.5); White Blood Count 10.3 K/mcL (4.3-11.1)
[2021-02-23 09:41] LABS: Magnesium 1.8 mg/dL (1.6-2.6)
[2021-02-23] MEDS: Budesonide/Formoterol 80/4.5 1 PUFF INH IH SCH ×2 (11:06→21:51)
[2021-02-23] MEDS: Tiotropium 10 INH DOSE IH SCH (11:06)
[2021-02-23] MEDS: cefTRIAXone 2,000 MG in 0.9 % Sodium Chloride Mini Bag 100 ML IVPB SCH (11:47)
[2021-02-24] MEDS: *HR* OxyCODONE/APAP 10/325 TABLET PO PRN ×5 (02:39→23:09)
[2021-02-24] MEDS: Apixaban 5 MG TABLET PO SCH ×2 (07:17→20:42)
[2021-02-24] MEDS: Metoprolol XL (24 HR) Succ 50 MG TAB.ER.24H PO SCH (07:17)
[2021-02-24] MEDS: Aspirin Enteric Coated 81 MG Tablet PO SCH (07:17)
[2021-02-24] MEDS: Lactobacillus 1 EACH CAP.SPRINK PO SCH (07:18)
[2021-02-24] MEDS: Furosemide 20 MG TABLET PO SCH (07:18)
[2021-02-24] MEDS: Valsartan 160 MG TABLET PO SCH (07:18)
[2021-02-24] MEDS: Sennosides/Docusate Sodium TABLET PO SCH ×2 (07:18→20:42)
[2021-02-24] MEDS: Nicotine 14 MG PATCH.TD24 TD SCH (07:19)
[2021-02-24] MEDS: Sulfamethoxazole/Trimeth DS 1 EACH TABLET PO SCH ×2 (07:19→20:42)
[2021-02-24] MEDS: Tiotropium 10 INH DOSE IH SCH (09:48)
[2021-02-24] MEDS: Budesonide/Formoterol 80/4.5 1 PUFF INH IH SCH ×2 (09:48→21:17)
[2021-02-25] MEDS: *HR* OxyCODONE/APAP 10/325 TABLET PO PRN ×4 (04:06→20:37)
[2021-02-25] MEDS: Budesonide/Formoterol 80/4.5 1 PUFF INH IH SCH ×2 (07:48→22:23)
[2021-02-25] MEDS: Tiotropium 10 INH DOSE IH SCH (07:48)
[2021-02-25] MEDS: Furosemide 20 MG TABLET PO SCH (08:36)
[2021-02-25] MEDS: Sennosides/Docusate Sodium TABLET PO SCH ×2 (08:36→20:36)
[2021-02-25] MEDS: Lactobacillus 1 EACH CAP.SPRINK PO SCH (08:36)
[2021-02-25] MEDS: Metoprolol XL (24 HR) Succ 50 MG TAB.ER.24H PO SCH (08:36)
[2021-02-25] MEDS: Aspirin Enteric Coated 81 MG Tablet PO SCH (08:36)
[2021-02-25] MEDS: Apixaban 5 MG TABLET PO SCH ×2 (08:37→20:36)
[2021-02-25] MEDS: Valsartan 80 MG TABLET PO SCH (08:37)
[2021-02-25] MEDS: Nicotine 14 MG PATCH.TD24 TD SCH (08:38)
[2021-02-25] MEDS: Sulfamethoxazole/Trimeth DS 1 EACH TABLET PO SCH ×2 (08:38→20:36)
[2021-02-26] MEDS: *HR* OxyCODONE/APAP 10/325 TABLET PO PRN ×4 (03:45→19:55)
[2021-02-26] MEDS: Lactobacillus 1 EACH CAP.SPRINK PO SCH (08:14)
[2021-02-26] MEDS: Sulfamethoxazole/Trimeth DS 1 EACH TABLET PO SCH ×2 (08:14→19:56)
[2021-02-26] MEDS: Sennosides/Docusate Sodium TABLET PO SCH ×2 (08:14→19:56)
[2021-02-26] MEDS: Apixaban 5 MG TABLET PO SCH ×2 (08:15→19:55)
[2021-02-26] MEDS: Aspirin Enteric Coated 81 MG Tablet PO SCH (08:15)
[2021-02-26] MEDS: Nicotine 14 MG PATCH.TD24 TD SCH (08:15)
[2021-02-26] MEDS: Furosemide 20 MG TABLET PO SCH (08:48)
[2021-02-26] MEDS: Metoprolol XL (24 HR) Succ 50 MG TAB.ER.24H PO SCH (08:48)
[2021-02-26] MEDS: Valsartan 80 MG TABLET PO SCH (08:48)
[2021-02-26] MEDS: Budesonide/Formoterol 80/4.5 1 PUFF INH IH SCH ×2 (09:58→22:24)
[2021-02-26] MEDS: Tiotropium 10 INH DOSE IH SCH (09:59)
[2021-02-26] MEDS ORDERED: *HR* LORazepam 1 MG TABLET PO ONE (13:54)
[2021-02-27] MEDS: *HR* OxyCODONE/APAP 10/325 TABLET PO PRN ×6 (00:13→22:48)
[2021-02-27] MEDS: Nicotine 14 MG PATCH.TD24 TD SCH (08:13)
[2021-02-27] MEDS: Lactobacillus 1 EACH CAP.SPRINK PO SCH (08:13)
[2021-02-27] MEDS: Aspirin Enteric Coated 81 MG Tablet PO SCH (08:14)
[2021-02-27] MEDS: Metoprolol XL (24 HR) Succ 50 MG TAB.ER.24H PO SCH (08:14)
[2021-02-27] MEDS: Sennosides/Docusate Sodium TABLET PO SCH ×2 (08:15→20:19)
[2021-02-27] MEDS: Sulfamethoxazole/Trimeth DS 1 EACH TABLET PO SCH ×2 (08:15→20:17)
[2021-02-27] MEDS: Apixaban 5 MG TABLET PO SCH ×2 (08:15→20:17)
[2021-02-27] MEDS: Furosemide 20 MG TABLET PO SCH (09:40)
[2021-02-27] MEDS: Valsartan 80 MG TABLET PO SCH (09:41)
[2021-02-27] MEDS: Budesonide/Formoterol 80/4.5 1 PUFF INH IH SCH ×2 (09:52→20:47)
[2021-02-27] MEDS: Tiotropium 10 INH DOSE IH SCH (09:53)
[2021-02-28] MEDS: *HR* OxyCODONE/APAP 10/325 TABLET PO PRN ×5 (02:56→20:28)
[2021-02-28] MEDS: Sulfamethoxazole/Trimeth DS 1 EACH TABLET PO SCH (07:57)
[2021-02-28] MEDS: Sennosides/Docusate Sodium TABLET PO SCH ×2 (07:57→20:29)
[2021-02-28] MEDS: Apixaban 5 MG TABLET PO SCH ×2 (07:57→20:28)
[2021-02-28] MEDS: Aspirin Enteric Coated 81 MG Tablet PO SCH (07:57)
[2021-02-28] MEDS: Metoprolol XL (24 HR) Succ 50 MG TAB.ER.24H PO SCH (07:58)
[2021-02-28] MEDS: Nicotine 14 MG PATCH.TD24 TD SCH (07:58)
[2021-02-28] MEDS: Lactobacillus 1 EACH CAP.SPRINK PO SCH (07:58)
[2021-02-28] MEDS: Furosemide 20 MG TABLET PO SCH (08:59)
[2021-02-28] MEDS: Valsartan 80 MG TABLET PO SCH (09:00)
[2021-02-28] MEDS: Budesonide/Formoterol 80/4.5 1 PUFF INH IH SCH ×2 (09:51→21:02)
[2021-02-28] MEDS: Tiotropium 10 INH DOSE IH SCH (09:51)
[2021-03-01] MEDS: Sulfamethoxazole/Trimeth DS 1 EACH TABLET PO SCH ×3 (00:18→21:48)
[2021-03-01] MEDS: *HR* OxyCODONE/APAP 10/325 TABLET PO PRN ×4 (01:58→18:32)
[2021-03-01] MEDS: Sennosides/Docusate Sodium TABLET PO SCH ×2 (09:37→21:59)
[2021-03-01] MEDS: Apixaban 5 MG TABLET PO SCH ×2 (09:38→21:48)
[2021-03-01] MEDS: Lactobacillus 1 EACH CAP.SPRINK PO SCH (09:38)
[2021-03-01] MEDS: Aspirin Enteric Coated 81 MG Tablet PO SCH (09:38)
[2021-03-01] MEDS: Furosemide 20 MG TABLET PO SCH (09:39)
[2021-03-01] MEDS: Nicotine 14 MG PATCH.TD24 TD SCH (09:40)
[2021-03-01] MEDS: Valsartan 80 MG TABLET PO SCH (09:42)
[2021-03-01] MEDS: Metoprolol XL (24 HR) Succ 50 MG TAB.ER.24H PO SCH (09:53)
[2021-03-01] MEDS: Tiotropium 10 INH DOSE IH SCH (12:14)
[2021-03-01] MEDS: Budesonide/Formoterol 80/4.5 1 PUFF INH IH SCH ×2 (12:14→22:11)
[2021-03-02] MEDS: *HR* OxyCODONE/APAP 10/325 TABLET PO PRN ×5 (00:01→23:04)
[2021-03-02 07:19] LABS: Basophils # 0.1 K/mcL (0.0-0.2); Basophils % 0.7 %; Eosinophils # 0.6 K/mcL (0.0-0.6); Eosinophils % 5.8 %; Hemoglobin 8.6 g/dL (12.9-16.9); Immature Granulocytes % 1.4 % (0-4); Lymphocytes # 2.9 K/mcL (0.6-4.6); Lymphocytes % 30.2 %; Mean Corpuscular HGB Conc 30.7 g/dL (31.6-35.5); Mean Corpuscular Hemoglobin 29.8 pg (28.0-33.3); Mean Corpuscular Volume 96.9 fL (83.0-100.0); Monocytes # 0.8 K/mcL (0.0-1.3); Monocytes % 8.4 %; Neutrophils # 5.1 K/mcL (1.6-8.9); Platelet Count 337 K/mcL (140-400); Red Blood Count 2.89 M/mcL (4.19-5.50); Red Cell Distribution Width 15.5 % (11.5-14.5); Segmented Neutrophils % 53.5 %; White Blood Count 9.6 K/mcL (4.3-11.1)
[2021-03-02] MEDS: Aspirin Enteric Coated 81 MG Tablet PO SCH (07:25)
[2021-03-02] MEDS: Sulfamethoxazole/Trimeth DS 1 EACH TABLET PO SCH ×2 (07:26→22:45)
[2021-03-02] MEDS: Sennosides/Docusate Sodium TABLET PO SCH ×2 (07:27→22:47)
[2021-03-02] MEDS: Apixaban 5 MG TABLET PO SCH ×2 (07:28→22:47)
[2021-03-02] MEDS: Lactobacillus 1 EACH CAP.SPRINK PO SCH (07:28)
[2021-03-02] MEDS: Furosemide 20 MG TABLET PO SCH (07:28)
[2021-03-02] MEDS: Valsartan 80 MG TABLET PO SCH (07:29)
[2021-03-02] MEDS: Metoprolol XL (24 HR) Succ 50 MG TAB.ER.24H PO SCH (07:30)
[2021-03-02] MEDS: Nicotine 14 MG PATCH.TD24 TD SCH (07:31)
[2021-03-02 07:39] LABS: BUN/Creatinine Ratio 20 (6-26); Blood Urea Nitrogen 21 mg/dL (8-23); Calcium 9.2 mg/dL (8.6-10.3); Carbon Dioxide 27 mEq/L (23-29); Chloride 104 mEq/L (98-107); Glucose 94 mg/dL (70-105); Osmolality,Calculated 289 (280-300); Potassium 4.2 mEq/L (3.5-5.1); Sodium 138 mEq/L (136-145); eGFR For African Americans > 60 (> 60); eGFR For Non-African Americans > 60 (> 60)
[2021-03-02] MEDS: Budesonide/Formoterol 80/4.5 1 PUFF INH IH SCH ×2 (07:50→21:56)
[2021-03-02] MEDS: Tiotropium 10 INH DOSE IH SCH (07:50)
[2021-03-02 12:18] LABS: C-Reactive Protein 33 mg/L (Less than 10)
[2021-03-02] MEDS: Morphine Sulfate 2 MG/ML SYRINGE IVP PRN (22:56)
[2021-03-03] MEDS: *HR* OxyCODONE/APAP 10/325 TABLET PO PRN ×4 (06:58→20:15)
[2021-03-03] MEDS: Sennosides/Docusate Sodium TABLET PO SCH ×2 (09:26→20:13)
[2021-03-03] MEDS: Sulfamethoxazole/Trimeth DS 1 EACH TABLET PO SCH (09:26)
[2021-03-03] MEDS: Lactobacillus 1 EACH CAP.SPRINK PO SCH (09:26)
[2021-03-03] MEDS: Apixaban 5 MG TABLET PO SCH ×2 (09:27→20:13)
[2021-03-03] MEDS: *HR* HYDROmorphone (PF) 1 MG/ML SYRINGE IVP ONE ×2 (09:27→09:37)
[2021-03-03] MEDS: Aspirin Enteric Coated 81 MG Tablet PO SCH (09:27)
[2021-03-03] MEDS: Metoprolol XL (24 HR) Succ 50 MG TAB.ER.24H PO SCH (09:27)
[2021-03-03] MEDS: Nicotine 14 MG PATCH.TD24 TD SCH (09:28)
[2021-03-03] MEDS: Furosemide 20 MG TABLET PO SCH (09:46)
[2021-03-03] MEDS: Valsartan 80 MG TABLET PO SCH (09:46)
[2021-03-03] MEDS: Tiotropium 10 INH DOSE IH SCH (10:19)
[2021-03-03] MEDS: Budesonide/Formoterol 80/4.5 1 PUFF INH IH SCH ×2 (10:20→22:02)
[2021-03-03] MEDS ORDERED: *HR* HYDROmorphone 2 MG/ML SYRINGE IVP PRN (13:26)
[2021-03-04] MEDS: *HR* OxyCODONE/APAP 10/325 TABLET PO PRN ×5 (03:10→22:16)
[2021-03-04] MEDS: Furosemide 20 MG TABLET PO SCH (07:31)
[2021-03-04] MEDS: Lactobacillus 1 EACH CAP.SPRINK PO SCH (07:31)
[2021-03-04] MEDS: Sennosides/Docusate Sodium TABLET PO SCH ×2 (07:32→20:38)
[2021-03-04] MEDS: Metoprolol XL (24 HR) Succ 50 MG TAB.ER.24H PO SCH (07:32)
[2021-03-04] MEDS: Aspirin Enteric Coated 81 MG Tablet PO SCH (07:33)
[2021-03-04] MEDS: Nicotine 14 MG PATCH.TD24 TD SCH (07:33)
[2021-03-04] MEDS: Valsartan 80 MG TABLET PO SCH (07:33)
[2021-03-04] MEDS: Apixaban 5 MG TABLET PO SCH ×2 (07:33→20:37)
[2021-03-04] MEDS: Budesonide/Formoterol 80/4.5 1 PUFF INH IH SCH ×2 (09:19→22:47)
[2021-03-04] MEDS: Tiotropium 10 INH DOSE IH SCH (09:19)
[2021-03-05] MEDS: *HR* OxyCODONE/APAP 10/325 TABLET PO PRN ×4 (03:59→19:08)
[2021-03-05] MEDS: Budesonide/Formoterol 80/4.5 1 PUFF INH IH SCH ×2 (08:43→22:51)
[2021-03-05] MEDS: Tiotropium 10 INH DOSE IH SCH (08:43)
[2021-03-05] MEDS: Sennosides/Docusate Sodium TABLET PO SCH ×2 (09:06→19:58)
[2021-03-05] MEDS: Aspirin Enteric Coated 81 MG Tablet PO SCH (09:06)
[2021-03-05] MEDS: Lactobacillus 1 EACH CAP.SPRINK PO SCH (09:08)
[2021-03-05] MEDS: Apixaban 5 MG TABLET PO SCH ×2 (09:08→19:58)
[2021-03-05] MEDS: Metoprolol XL (24 HR) Succ 50 MG TAB.ER.24H PO SCH (09:09)
[2021-03-05] MEDS: Furosemide 20 MG TABLET PO SCH (09:09)
[2021-03-05] MEDS: Nicotine 14 MG PATCH.TD24 TD SCH (09:10)
[2021-03-06] MEDS: *HR* OxyCODONE/APAP 10/325 TABLET PO PRN ×5 (04:57→19:55)
[2021-03-06] MEDS: Aspirin Enteric Coated 81 MG Tablet PO SCH (08:37)
[2021-03-06] MEDS: Furosemide 20 MG TABLET PO SCH (08:37)
[2021-03-06] MEDS: Apixaban 5 MG TABLET PO SCH ×2 (08:37→19:55)
[2021-03-06] MEDS: Sennosides/Docusate Sodium TABLET PO SCH ×2 (08:38→19:56)
[2021-03-06] MEDS: Nicotine 14 MG PATCH.TD24 TD SCH (08:38)
[2021-03-06] MEDS: Lactobacillus 1 EACH CAP.SPRINK PO SCH (08:38)
[2021-03-06] MEDS: Metoprolol XL (24 HR) Succ 50 MG TAB.ER.24H PO SCH (08:38)
[2021-03-06] MEDS: Tiotropium 10 INH DOSE IH SCH (10:55)
[2021-03-06] MEDS: Budesonide/Formoterol 80/4.5 1 PUFF INH IH SCH ×2 (10:55→22:29)
[2021-03-07] MEDS: *HR* OxyCODONE/APAP 10/325 TABLET PO PRN ×5 (01:17→20:30)
[2021-03-07] MEDS: Metoprolol XL (24 HR) Succ 50 MG TAB.ER.24H PO SCH (08:07)
[2021-03-07] MEDS: Lactobacillus 1 EACH CAP.SPRINK PO SCH (08:08)
[2021-03-07] MEDS: Nicotine 14 MG PATCH.TD24 TD SCH (08:08)
[2021-03-07] MEDS: Sennosides/Docusate Sodium TABLET PO SCH ×2 (08:09→20:30)
[2021-03-07] MEDS: Furosemide 20 MG TABLET PO SCH (08:09)
[2021-03-07] MEDS: Aspirin Enteric Coated 81 MG Tablet PO SCH (08:09)
[2021-03-07] MEDS: Apixaban 5 MG TABLET PO SCH ×2 (08:09→20:30)
[2021-03-07] MEDS: Tiotropium 10 INH DOSE IH SCH (10:11)
[2021-03-07] MEDS: Budesonide/Formoterol 80/4.5 1 PUFF INH IH SCH ×2 (10:11→21:50)
[2021-03-08] MEDS: *HR* OxyCODONE/APAP 10/325 TABLET PO PRN ×5 (00:46→20:11)
[2021-03-08] MEDS: Metoprolol XL (24 HR) Succ 50 MG TAB.ER.24H PO SCH (08:15)
[2021-03-08] MEDS: Apixaban 5 MG TABLET PO SCH ×2 (08:24→20:11)
[2021-03-08] MEDS: Furosemide 20 MG TABLET PO SCH (08:24)
[2021-03-08] MEDS: Aspirin Enteric Coated 81 MG Tablet PO SCH (08:24)
[2021-03-08] MEDS: Lactobacillus 1 EACH CAP.SPRINK PO SCH (08:25)
[2021-03-08] MEDS: Sennosides/Docusate Sodium TABLET PO SCH ×2 (08:25→20:10)
[2021-03-08] MEDS: Nicotine 14 MG PATCH.TD24 TD SCH (08:25)
[2021-03-08 08:52] LABS: Basophils # 0.1 K/mcL (0.0-0.2); Eosinophils # 0.6 K/mcL (0.0-0.6); Eosinophils % 6.8 %; Hematocrit 29.7 % (37.5-50.1); Hemoglobin 9.2 g/dL (12.9-16.9); Immature Granulocytes % 0.5 % (0-4); Lymphocytes # 2.5 K/mcL (0.6-4.6); Lymphocytes % 28.5 %; Mean Corpuscular Hemoglobin 30.4 pg (28.0-33.3); Mean Platelet Volume 8.6 fL (9.4-12.4); Monocytes # 0.9 K/mcL (0.0-1.3); Monocytes % 9.8 %; Neutrophils # 4.6 K/mcL (1.6-8.9); Platelet Count 261 K/mcL (140-400); Red Blood Count 3.03 M/mcL (4.19-5.50); Segmented Neutrophils % 53.4 %; White Blood Count 8.6 K/mcL (4.3-11.1)
[2021-03-08] MEDS: Budesonide/Formoterol 80/4.5 1 PUFF INH IH SCH ×2 (08:57→22:58)
[2021-03-08] MEDS: Tiotropium 10 INH DOSE IH SCH (08:58)
[2021-03-08 09:02] LABS: VBG Chloride 102 mEq/L (98-107)
[2021-03-08 10:00] LABS: BUN/Creatinine Ratio 22 (6-26); Blood Urea Nitrogen 20 mg/dL (8-23); Calcium 9.2 mg/dL (8.6-10.3); Carbon Dioxide 27 mEq/L (23-29); Glucose 103 mg/dL (70-105); eGFR For African Americans > 60 (> 60); eGFR For Non-African Americans > 60 (> 60)
[2021-03-09] MEDS: *HR* OxyCODONE/APAP 10/325 TABLET PO PRN ×5 (01:10→20:44)
[2021-03-09] MEDS: Aspirin Enteric Coated 81 MG Tablet PO SCH (08:09)
[2021-03-09] MEDS: Apixaban 5 MG TABLET PO SCH ×2 (08:09→20:43)
[2021-03-09] MEDS: Lactobacillus 1 EACH CAP.SPRINK PO SCH (08:09)
[2021-03-09] MEDS: Metoprolol XL (24 HR) Succ 50 MG TAB.ER.24H PO SCH (08:09)
[2021-03-09] MEDS: Sennosides/Docusate Sodium TABLET PO SCH ×2 (08:10→20:43)
[2021-03-09] MEDS: Nicotine 14 MG PATCH.TD24 TD SCH (08:10)
[2021-03-09] MEDS: Furosemide 20 MG TABLET PO SCH ×2 (09:44→09:48)
[2021-03-09] MEDS: Budesonide/Formoterol 80/4.5 1 PUFF INH IH SCH ×2 (12:01→22:38)
[2021-03-09] MEDS: Tiotropium 10 INH DOSE IH SCH (12:01)
[2021-03-10] MEDS: *HR* OxyCODONE/APAP 10/325 TABLET PO PRN ×6 (01:14→23:58)
[2021-03-10] MEDS: Nicotine 14 MG PATCH.TD24 TD SCH (08:55)
[2021-03-10] MEDS: Sennosides/Docusate Sodium TABLET PO SCH ×2 (08:56→19:25)
[2021-03-10] MEDS: Furosemide 20 MG TABLET PO SCH (08:57)
[2021-03-10] MEDS: Aspirin Enteric Coated 81 MG Tablet PO SCH (08:58)
[2021-03-10] MEDS: Lactobacillus 1 EACH CAP.SPRINK PO SCH (08:59)
[2021-03-10] MEDS: Apixaban 5 MG TABLET PO SCH ×2 (08:59→19:27)
[2021-03-10] MEDS: Metoprolol XL (24 HR) Succ 50 MG TAB.ER.24H PO SCH (08:59)
[2021-03-10] MEDS: Budesonide/Formoterol 80/4.5 1 PUFF INH IH SCH ×2 (09:02→21:47)
[2021-03-10] MEDS: Tiotropium 10 INH DOSE IH SCH (09:02)
[2021-03-11] MEDS: *HR* OxyCODONE/APAP 10/325 TABLET PO PRN ×4 (06:04→21:00)
[2021-03-11] MEDS: Aspirin Enteric Coated 81 MG Tablet PO SCH (08:53)
[2021-03-11] MEDS: Lactobacillus 1 EACH CAP.SPRINK PO SCH (08:53)
[2021-03-11] MEDS: Sennosides/Docusate Sodium TABLET PO SCH ×2 (08:54→19:48)
[2021-03-11] MEDS: Metoprolol XL (24 HR) Succ 50 MG TAB.ER.24H PO SCH (08:54)
[2021-03-11] MEDS: Apixaban 5 MG TABLET PO SCH ×2 (08:55→19:49)
[2021-03-11] MEDS: Nicotine 14 MG PATCH.TD24 TD SCH (08:55)
[2021-03-11] MEDS: Furosemide 20 MG TABLET PO SCH (08:55)
[2021-03-11] MEDS: Budesonide/Formoterol 80/4.5 1 PUFF INH IH SCH ×2 (10:21→22:17)
[2021-03-11] MEDS: Tiotropium 10 INH DOSE IH SCH (10:22)
[2021-03-12] MEDS: *HR* OxyCODONE/APAP 10/325 TABLET PO PRN ×5 (02:17→23:21)
[2021-03-12] MEDS: Lactobacillus 1 EACH CAP.SPRINK PO SCH (08:07)
[2021-03-12] MEDS: Nicotine 14 MG PATCH.TD24 TD SCH (08:07)
[2021-03-12] MEDS: Aspirin Enteric Coated 81 MG Tablet PO SCH (08:07)
[2021-03-12] MEDS: Metoprolol XL (24 HR) Succ 50 MG TAB.ER.24H PO SCH (08:08)
[2021-03-12] MEDS: Apixaban 5 MG TABLET PO SCH ×2 (08:08→19:32)
[2021-03-12] MEDS: Sennosides/Docusate Sodium TABLET PO SCH ×2 (08:09→19:32)
[2021-03-12] MEDS: Tiotropium 10 INH DOSE IH SCH (09:25)
[2021-03-12] MEDS: Budesonide/Formoterol 80/4.5 1 PUFF INH IH SCH ×2 (09:25→21:00)
[2021-03-12] MEDS: Furosemide 20 MG TABLET PO SCH (10:32)
[2021-03-13] MEDS: *HR* OxyCODONE/APAP 10/325 TABLET PO PRN ×5 (04:33→22:32)
[2021-03-13] MEDS: Furosemide 20 MG TABLET PO SCH (09:10)
[2021-03-13] MEDS: Aspirin Enteric Coated 81 MG Tablet PO SCH (09:11)
[2021-03-13] MEDS: Lactobacillus 1 EACH CAP.SPRINK PO SCH (09:11)
[2021-03-13] MEDS: Apixaban 5 MG TABLET PO SCH ×2 (09:11→20:35)
[2021-03-13] MEDS: Nicotine 14 MG PATCH.TD24 TD SCH (09:11)
[2021-03-13] MEDS: Metoprolol XL (24 HR) Succ 25 MG TAB.ER.24H PO SCH (09:17)
[2021-03-13] MEDS: Sennosides/Docusate Sodium TABLET PO SCH ×2 (09:20→20:37)
[2021-03-13] MEDS: Metoprolol XL (24 HR) Succ 50 MG TAB.ER.24H PO SCH (09:47)
[2021-03-13] MEDS: Tiotropium 10 INH DOSE IH SCH (10:32)
[2021-03-13] MEDS: Budesonide/Formoterol 80/4.5 1 PUFF INH IH SCH ×2 (10:33→22:15)
[2021-03-13 14:37] LABS: Bilirubin,Urine Negative (Negative); Blood,Urine Moderate (Negative); Clarity,Urine Slightly Cloudy (Clear); Color,Urine Yellow (Yellow); Glucose,Urine (UA) Normal (Normal); Ketones,Urine Negative (Negative); Leukocyte Esterase,Urine Large (Negative); Nitrite,Urine Negative (Negative); Protein,Urine Trace mg/dL (Neg-Trace); Urobilinogen,Urine Normal (Normal)
[2021-03-13 14:44] LABS: Bacteria,Urine Moderate per hpf (None-Few); Squamous Epithelial Cell,Urine Few per hpf (None-Few); WBC,Urine 15-30 per hpf (0-3)
[2021-03-13 14:45] LABS: RBC,Urine 15-30 per hpf (0-3)
[2021-03-13] MEDS ORDERED: *HR* Metoprolol 5 MG/5 ML VIAL IVP PRN (15:28)
[2021-03-14] MEDS: *HR* OxyCODONE/APAP 10/325 TABLET PO PRN ×5 (03:35→22:05)
[2021-03-14] MEDS: Aspirin Enteric Coated 81 MG Tablet PO SCH (08:05)
[2021-03-14] MEDS: Lactobacillus 1 EACH CAP.SPRINK PO SCH (08:05)
[2021-03-14] MEDS: Apixaban 5 MG TABLET PO SCH ×2 (08:05→22:05)
[2021-03-14] MEDS: Sennosides/Docusate Sodium TABLET PO SCH ×2 (08:05→22:04)
[2021-03-14] MEDS: Metoprolol XL (24 HR) Succ 25 MG TAB.ER.24H PO SCH (08:05)
[2021-03-14] MEDS: Nicotine 14 MG PATCH.TD24 TD SCH (08:07)
[2021-03-14] MEDS: Furosemide 20 MG TABLET PO SCH (08:36)
[2021-03-14] MEDS: Budesonide/Formoterol 80/4.5 1 PUFF INH IH SCH ×2 (11:36→21:40)
[2021-03-14] MEDS: Tiotropium 10 INH DOSE IH SCH (11:36)
[2021-03-15] MEDS: *HR* OxyCODONE/APAP 10/325 TABLET PO PRN ×5 (03:32→22:20)
[2021-03-15] MEDS: Lactobacillus 1 EACH CAP.SPRINK PO SCH (09:03)
[2021-03-15] MEDS: Metoprolol XL (24 HR) Succ 25 MG TAB.ER.24H PO SCH (09:04)
[2021-03-15] MEDS: Apixaban 5 MG TABLET PO SCH ×2 (09:04→22:20)
[2021-03-15] MEDS: Aspirin Enteric Coated 81 MG Tablet PO SCH (09:04)
[2021-03-15] MEDS: Nicotine 14 MG PATCH.TD24 TD SCH (09:05)
[2021-03-15] MEDS: Sennosides/Docusate Sodium TABLET PO SCH ×2 (09:05→22:20)
[2021-03-15] MEDS: Tiotropium 10 INH DOSE IH SCH (09:36)
[2021-03-15] MEDS: Budesonide/Formoterol 80/4.5 1 PUFF INH IH SCH ×2 (09:36→22:48)
[2021-03-15] MEDS: Furosemide 20 MG TABLET PO SCH (09:40)
[2021-03-15 15:34] LABS: Hematocrit 31.5 % (37.5-50.1); Hemoglobin 9.6 g/dL (12.9-16.9); Mean Corpuscular HGB Conc 30.5 g/dL (31.6-35.5); Mean Corpuscular Hemoglobin 29.8 pg (28.0-33.3); Mean Corpuscular Volume 97.8 fL (83.0-100.0); Mean Platelet Volume 8.9 fL (9.4-12.4); Platelet Count 221 K/mcL (140-400); Red Blood Count 3.22 M/mcL (4.19-5.50); Red Cell Distribution Width 15.2 % (11.5-14.5); White Blood Count 9.8 K/mcL (4.3-11.1)
[2021-03-15 15:58] LABS: BUN/Creatinine Ratio 21 (6-26); Blood Urea Nitrogen 24 mg/dL (8-23); Calcium 8.9 mg/dL (8.6-10.3); Carbon Dioxide 29 mEq/L (23-29); Chloride 103 mEq/L (98-107); Glucose 116 mg/dL (70-105); Osmolality,Calculated 291 (280-300); Potassium 3.9 mEq/L (3.5-5.1); Sodium 138 mEq/L (136-145); eGFR For African Americans > 60 (> 60); eGFR For Non-African Americans > 60 (> 60)
[2021-03-16] MEDS: *HR* OxyCODONE/APAP 10/325 TABLET PO PRN ×5 (03:34→21:58)
[2021-03-16] MEDS: Lactobacillus 1 EACH CAP.SPRINK PO SCH (08:21)
[2021-03-16] MEDS: Furosemide 20 MG TABLET PO SCH (08:22)
[2021-03-16] MEDS: Apixaban 5 MG TABLET PO SCH ×2 (08:22→21:50)
[2021-03-16] MEDS: Sennosides/Docusate Sodium TABLET PO SCH ×2 (08:23→21:49)
[2021-03-16] MEDS: Metoprolol XL (24 HR) Succ 25 MG TAB.ER.24H PO SCH (08:24)
[2021-03-16] MEDS: Aspirin Enteric Coated 81 MG Tablet PO SCH (08:24)
[2021-03-16] MEDS: Nicotine 14 MG PATCH.TD24 TD SCH (08:29)
[2021-03-16] MEDS: Tiotropium 10 INH DOSE IH SCH (09:31)
[2021-03-16] MEDS: Budesonide/Formoterol 80/4.5 1 PUFF INH IH SCH ×2 (09:31→21:41)
[2021-03-16] MEDS: Sulfamethoxazole/Trimeth DS 1 EACH TABLET PO SCH ×2 (10:27→21:55)
[2021-03-16] MEDS ORDERED: Ipratropium/Albuterol Neb 3 ML IH PRN (10:28)
[2021-03-17] MEDS: *HR* OxyCODONE/APAP 10/325 TABLET PO PRN ×5 (03:31→23:44)
[2021-03-17] MEDS: Budesonide/Formoterol 80/4.5 1 PUFF INH IH SCH ×2 (09:26→21:06)
[2021-03-17] MEDS: Tiotropium 10 INH DOSE IH SCH (09:27)
[2021-03-17] MEDS: Sulfamethoxazole/Trimeth DS 1 EACH TABLET PO SCH ×2 (10:06→19:32)
[2021-03-17] MEDS: Aspirin Enteric Coated 81 MG Tablet PO SCH (10:07)
[2021-03-17] MEDS: Furosemide 20 MG TABLET PO SCH (10:07)
[2021-03-17] MEDS: Lactobacillus 1 EACH CAP.SPRINK PO SCH (10:08)
[2021-03-17] MEDS: Apixaban 5 MG TABLET PO SCH ×2 (10:08→19:33)
[2021-03-17] MEDS: Metoprolol XL (24 HR) Succ 25 MG TAB.ER.24H PO SCH (10:08)
[2021-03-17] MEDS ORDERED: Linezolid 600 MG TABLET PO SCH (11:15)
[2021-03-17 22:45] VITALS: RESP 18
[2021-03-18] MEDS: *HR* OxyCODONE/APAP 10/325 TABLET PO PRN ×3 (03:30→13:46)
[2021-03-18 06:38] VITALS: BP 104/70; PULSE 58; TEMP 98.1
[2021-03-18] MEDS: Budesonide/Formoterol 80/4.5 1 PUFF INH IH SCH (09:31)
[2021-03-18] MEDS: Tiotropium 10 INH DOSE IH SCH (09:32)
[2021-03-18 09:37] VITALS: O2SAT 98
[2021-03-18] MEDS: Sulfamethoxazole/Trimeth DS 1 EACH TABLET PO SCH (09:57)
[2021-03-18] MEDS: Furosemide 20 MG TABLET PO SCH (09:57)
[2021-03-18] MEDS: Lactobacillus 1 EACH CAP.SPRINK PO SCH (09:57)
[2021-03-18] MEDS: Apixaban 5 MG TABLET PO SCH (09:57)
[2021-03-18] MEDS: Aspirin Enteric Coated 81 MG Tablet PO SCH (09:57)
[2021-03-18] MEDS: Metoprolol XL (24 HR) Succ 25 MG TAB.ER.24H PO SCH (09:58)
== END 2021-03-18 16:13 | disposition home health service (06) | DRG 592 ==
LOC: INPPIK 19:27
PROVIDERS: ADMIT Internal Medicine; ATTEND Internal Medicine